=== PATIENT | male | born 1960 | race Caucasian/White ===

== ENCOUNTER 2016-05-18 16:24 | Inpatient (IN) | payer BC ==
[2016-05-18] MEDS ORDERED: Iohexol 350 (CONTRAST) 200 ML MDV IV ONE (16:30)
[2016-05-18] MEDS ORDERED: Heparin 2 UNITS/ML IVPREMIX* 2,000 ML IV ONE (16:30)
[2016-05-18] MEDS ORDERED: Heparin for STEMI(*) 5,000 UNITS/ML 1 ML VIAL IV ONE (16:33)
[2016-05-18] MEDS ORDERED: Lidocaine 1% INJ* 10 MG/ML 30 ML SDV ONE (16:35)
[2016-05-18] MEDS ORDERED: nitroGLYCERIN DRIP* 250 ML ONE (16:37)
[2016-05-18] MEDS ORDERED: VERAPAMIL 2.5 MG/ML 4 ML VIAL ONE (16:37)
[2016-05-18] MEDS ORDERED: Heparin(*) 1000 UNIT/ML 10 ML VIAL CATH LAB IV ONE (16:37)
[2016-05-18] MEDS ORDERED: Midazolam* 1 MG/ML 5 ML VIAL (5 MG) ONE (16:39)
[2016-05-18] MEDS ORDERED: fentaNYL* 50 MCG/ML 2 ML VIAL (100 MCG VIAL) ONE (16:39)
[2016-05-18 16:47] LABS: Hematocrit 48 % (42-52); Hemoglobin 15.3 g/dl (14.0-18.0); Mean Corpuscular HGB Conc 32 g/dl (31-36); Mean Corpuscular Hemoglobin 30 pg (27-31); Mean Corpuscular Volume 94 fL (80-94); Mean Platelet Volume 8 um3 (7.4-10.4); Red Blood Count 5.04 10^6/ul (4.0-5.4); Red Cell Distribution Width 13 % (10.5-15); White Blood Count 17.9 10^3/ul (3.5-10.8)
[2016-05-18] MEDS ORDERED: Ticagrelor* 90 MG TAB PO ONE (16:52)
[2016-05-18 17:04] LABS: Albumin 4.4 g/dL (3.2-5.2); BUN/Creatinine Ratio 16.3 (8-20); Calcium 10.1 mg/dL (8.6-10.3); EGFR African American 94.3 (>60); EGFR Non-African American 73.4 (>60); Globulin 2.8 g/dL (2-4); Potassium 4.5 mmol/L (3.5-5.0); Total Bilirubin 0.5 mg/dL (0.2-1.0); Total Protein 7.2 g/dL (6.4-8.9)
[2016-05-18 17:06] LABS: Troponin I 0.7 ng/mL (<0.04)
--- NOTE | 2016-05-18 17:12 | ED ---
Bhavin Paris Adam, scribed for Des Hernandez MD on 05/18/16 at 1637 . HPI Chest Pain - HPI Summary HPI Summary: Pt is a 56 year old male sent from [facility] urgent care with presumed STEMI. Pt reports feelings of heartburn that set on yesterday and resolved yesterday afternoon. Pt slept normally but states that the heartburn sensation returned today accompanied by nausea and diaphoresis. He has a PMHx of HTN and DM but denies any other cardiac Hx. He denies ever having a stress test. Hx of tobacco smoking. No Hx of surgeries. - History of Current Complaint Time Seen by Provider: 05/18/16 16:32 Hx Obtained From: Patient Onset/Duration: Started Days Ago, Atraumatic, Still Present Timing: Intermittent Initial Severity: Moderate Current Severity: Moderate Chest Pain Location: Upper Sternal Chest Pain Radiates: No Character: Other: - Heartburn Aggravating Factor(s): Nothing Alleviating Factor(s): Nothing Associated Signs and Symptoms: Positive: Diaphoresis, Nausea PMH/Surg Hx/FS Hx/Imm Hx Cardiovascular History: Reports: Hx Hypertension Infectious Disease History: Denies: Traveled Outside the [place] in Last 30 Days - Social History Occupation: Employed Full-time Lives: With Family - Hx Tobacco Use: Yes Review of Systems Positive: Skin Diaphoresis Positive: Chest Pain Positive: Nausea All Other Systems Reviewed And Are Negative: Yes Physical Exam - Summary Physical Exam Summary: VITAL SIGNS: Reviewed. GENERAL: Patient is a well developed and nourished male who is lying comfortable in the stretcher. Patient is not in any acute respiratory distress. HEAD AND FACE: No signs of trauma. No ecchymosis, hematomas or skull depressions. No sinus tenderness. EYES: PERRLA, EOMI x 2, No injected conjunctiva, no nystagmus. EARS: Hearing grossly intact. Ear canals and tympanic membranes are within normal limits. MOUTH: Oropharynx within normal limits. NECK: Supple, trachea is midline, no adenopathy, no JVD, no carotid bruit, no c- spine tenderness, neck with full ROM. CHEST: Symmetric, no tenderness at palpation LUNGS: Clear to auscultation bilaterally. No wheezing or crackles. CVS: Regular rate and rhythm, S1 and S2 present, no murmurs or gallops appreciated. ABDOMEN: Soft, non-tender. No signs of distention. No rebound no guarding, and no masses palpated. Bowel sounds are normal. EXTREMITIES: FROM in all major joints, no edema, no cyanosis or clubbing. NEURO: Alert and oriented x 3. No acute neurological deficits. Speech is normal and follows commands. SKIN: Dry and warm Triage Information Reviewed: Yes Vital Signs Reviewed: Yes Diagnostics - Laboratory Result Diagrams: 05/18/16 16:35 05/18/16 16:35 Lab Statement: Any lab studies that have been ordered have been reviewed, and results considered in the medical decision making process. - EKG 16:23 Cardiac Rate: NL - 80 BPM EKG Rhythm: Sinus Rhythm EKG Interpretation: ST elevations in V2-V5 with reciprocal changes in II,III, and aVF Chest Pain Course/Dx - Course Assessment/Plan: Pt is a 56 year old male sent from [facility] urgent care with presumed STEMI. Pt reports feelings of heartburn that set on yesterday and resolved yesterday afternoon. Pt slept normally but states that the heartburn sensation returned today accompanied by nausea and diaphoresis. He has a PMHx of HTN and DM but denies any other cardiac Hx. EKG shows and JUAN FRANCISCO V2-V5 with reciprocal changes in lead II, III and AVf. STEM protocol was called. Blood work is pending. He was given Heparin 4000 units. I discussed the case with Dr. Mendes. He came and examined the patient and he will be taking the patient to the phlebotomy lab assistant. Patient is hemodynamically stable and he is A+O x 3. - Chest Pain Differential Diagnosis/HQI/PQRI: Acute [place], ACS, Angina, CHF, Chest Wall, GI Disease, Lower Respiratory Infection - Diagnoses Provider Diagnoses: Acute myocardial infarction Discharge - Discharge Plan Condition: Stable Disposition: ADMITTED TO [facility] Referrals: Sekou Arredondo MD [Primary Care Provider] - The documentation as recorded by the Bhavin mcmillan Adam accurately reflects the service I personally performed and the decisions made by me, Des Hernandez MD.
[2016-05-18] MEDS ORDERED: Eptifibatide IV (Load dose)(*) 2 MG/ML 10 ml VIAL ONE ×2 (17:16)
[2016-05-18] MEDS ORDERED: Nitroglycerin TAB 0.4 MG* 0.4 MG TAB SL PRN (18:06)
[2016-05-18] MEDS ORDERED: Ondansetron INJ* 2 MG/ML VIAL IV PRN (18:08)
[2016-05-18] MEDS ORDERED: Zolpidem TAB* 5 MG PO PRN (18:08)
[2016-05-18] MEDS ORDERED: NS 0.9% 1000 ML* 1,000 ML IV SCH (18:15)
[2016-05-18 19:03] LABS: Hematocrit 41 % (42-52); Hemoglobin 13.1 g/dl (14.0-18.0); Mean Corpuscular HGB Conc 32 g/dl (31-36); Mean Corpuscular Hemoglobin 30 pg (27-31); Mean Corpuscular Volume 94 fL (80-94); Mean Platelet Volume 8 um3 (7.4-10.4); Red Blood Count 4.31 10^6/ul (4.0-5.4); Red Cell Distribution Width 14 % (10.5-15); White Blood Count 14.3 10^3/ul (3.5-10.8)
[2016-05-18 19:18] LABS: ALT 39 U/L (7-52); AST 180 U/L (13-39); Albumin 3.6 g/dL (3.2-5.2); Alkaline Phosphatase 61 U/L (34-104); Anion Gap 3 mmol/L (2-11); BUN/Creatinine Ratio 19.8 (8-20); Blood Urea Nitrogen 16 mg/dL (6-24); CO2 Carbon Dioxide 27 mmol/L (22-32); Calcium 8.5 mg/dL (8.6-10.3); Chloride 102 mmol/L (101-111); EGFR African American 125.9 (>60); EGFR Non-African American 97.9 (>60); Globulin 2.1 g/dL (2-4); Glucose 153 mg/dL (70-100); LDL Cholesterol Direct 69 mg/dL; Potassium 4.4 mmol/L (3.5-5.0); Sodium 132 mmol/L (133-145); Total Protein 5.7 g/dL (6.4-8.9)
[2016-05-18 19:24] LABS: Troponin I 44.31 ng/mL (<0.04)
[2016-05-18 19:34] LABS: Creatine Kinase 2782 U/L (10-223)
[2016-05-18] MEDS: Atorvastatin* 80 MG TAB PO SCH (21:24)
[2016-05-18] MEDS: Nicotine PATCH 14 MG/24 HR* PATCH TRANSDERM SCH (21:24)
[2016-05-18] MEDS: Famotidine TAB* 20 MG PO SCH (21:24)
[2016-05-18] MEDS: Metoprolol Tartrate TAB* 25 MG PO SCH (21:24)
--- NOTE | 2016-05-18 21:24 | HP ---
HISTORY AND PHYSICAL: DATE OF ADMISSION: 05/18/16 PRIMARY CARE PHYSICIAN: Dr. Arredondo. HISTORY OF PRESENT ILLNESS: A 56-year-old male presenting to the ER with anterior ST-elevation infarct. He has no previous cardiac history. He has a history of infrequent heartburn. Yesterday, all day long, he had what he thought was severe heartburn with precordial burning with radiation of discomfort up into his lower teeth. Nonetheless, he worked all day, the discomfort gradually resolved by evening. This morning, he then had a recurrence of the same discomfort with radiation to his teeth which was intermittent and waxing and waning, he went to urgent care thinking he had bad heartburn. EKG there at 1544 hours revealed an acute anterolateral ST- elevation infarct with ST elevation in aVL, V1 through V5 with minimal if any R waves in V1, V2, QS in V3, Q wave in aVL. He had reciprocal inferior ST depression. He was transferred to our ER where he complained of mild chest discomfort, was brought to the sanitation laborer for emergent catheterization. He has not had heart failure symptoms, palpitations, or syncope. In hindsight, he may have been more fatigued lately. He works doing painting and dry wall work. PAST MEDICAL HISTORY: Hypertension; diabetes, type 2. PREHOSPITAL MEDICATIONS: He is on oral meds for blood pressure and for diabetes , has not been on regular aspirin. He does not know his medications. ALLERGIES: None to medications. FAMILY HISTORY: Positive for coronary disease. SOCIAL HISTORY: He is a 4-gdsa-oag-day smoker. He is . REVIEW OF SYSTEMS: General: No weight loss. No fever. He is active. 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 GI: No history of peptic ulcer disease or bleeding. Circulatory: He does complain of leg cramping and knee pain with walking. Pulmonary: No history of COPD, bronchitis. Remainder of 14-point review all negative. PHYSICAL EXAMINATION GENERAL: When seen in the ER, he was not in distress. VITAL SIGNS: His blood pressure 150/80, heart rate 70s to 80s, sinus rhythm. HEENT: Without xanthelasma or scleral injection. EOMs normal. Cranial nerves grossly intact. NECK: JVP was normal at 7. Carotids normal without bruits. Neck is soft, supple. No thyromegaly. LUNGS: He had no dullness to percussion, no rales. CARDIAC: [place] not palpable, nor RV. Normal S1, S2. No audible gallop, murmur , or rub. ABDOMEN: Soft, nontender. No bruit. Aorta and liver not palpable. Femoral pulses 2+, no bruits. EXTREMITIES: Radial and pedal pulses palpable. He has no cyanosis, clubbing, or edema. PSYCH: Oriented and is appropriate. SKIN: Warm and perfused. DIAGNOSTIC STUDIES/LAB DATA: White count high at 17.9 with normal hemoglobin and platelet count. First sodium 132 with a random blood sugar of 194. First troponin 0.7 with MB of 18.7 and CPK of 174. BNP 201. His LDL is 82. EKG as above. IMPRESSION: 1. Anterolateral ST-elevation infarct. By history, he had ischemic symptoms all day yesterday suggesting a very late presentation. However, his first troponin is low. He has very poor R-wave progression in the right precordial leads; hopefully, this is due to lead placement rather than transmural septal infarct. His low cardiac enzymes do not support an extensive infarct prehospital. However, we will see where his enzymes peak. 2. Hypertension: We will continue to treat medically. 3. Diabetes: We will continue with medical management. 4. Tobacco use: He will be counseled to not resume smoking. CC: Dr. Arredondo; Dr. Mendes * [id number]/[facility] #: [id number] [facility]
[2016-05-18] MEDS: Captopril TAB* 12.5 MG PO SCH (21:25)
[2016-05-18] MEDS: Ticagrelor* 90 MG TAB PO SCH (21:25)
[2016-05-19 01:10] LABS: Troponin I > 80.00 ng/mL (<0.04)
[2016-05-19 01:21] LABS: Creatine Kinase 2722 U/L (10-223)
[2016-05-19 06:12] LABS: Anion Gap 6 mmol/L (2-11); BUN/Creatinine Ratio 20.3 (8-20); Blood Urea Nitrogen 15 mg/dL (6-24); CO2 Carbon Dioxide 24 mmol/L (22-32); Calcium 9.3 mg/dL (8.6-10.3); Chloride 100 mmol/L (101-111); Creatine Kinase 1641 U/L (10-223); EGFR African American 139.7 (>60); EGFR Non-African American 108.6 (>60); Glucose 181 mg/dL (70-100); Potassium 4.2 mmol/L (3.5-5.0); Sodium 130 mmol/L (133-145)
[2016-05-19 06:14] LABS: Troponin I > 80.00 ng/mL (<0.04)
[2016-05-19] MEDS: Metoprolol Tartrate TAB* 25 MG PO SCH ×3 (08:22→18:40)
[2016-05-19] MEDS: Famotidine TAB* 20 MG PO SCH (08:22)
[2016-05-19] MEDS: Ticagrelor* 90 MG TAB PO SCH ×2 (08:23→21:20)
[2016-05-19] MEDS: Aspirin Low Dose CHEW TAB* 81 MG PO SCH (08:23)
[2016-05-19] MEDS: Enoxaparin(*) 40 MG/0.4 ML SYR SUBCUT SCH (14:25)
[2016-05-19] MEDS: Captopril TAB* 12.5 MG PO SCH ×2 (14:25→21:20)
[2016-05-19] MEDS: Nicotine PATCH 14 MG/24 HR* PATCH TRANSDERM SCH (18:33)
[2016-05-19] MEDS: Latanoprost 0.005%* 2.5 ml BTL BOTH EYES SCH (21:18)
[2016-05-19] MEDS: Atorvastatin* 80 MG TAB PO SCH (21:19)
[2016-05-19] MEDS: Nicotine Patch Removal NOTE PATCH OFF SCH (21:30)
[2016-05-20] MEDS: Metoprolol Tartrate TAB* 25 MG PO SCH ×2 (01:10→06:48)
[2016-05-20] MEDS: Captopril TAB* 12.5 MG PO SCH ×4 (07:29→20:14)
[2016-05-20] MEDS: Aspirin Low Dose CHEW TAB* 81 MG PO SCH (08:36)
[2016-05-20] MEDS: Ticagrelor* 90 MG TAB PO SCH (08:37)
[2016-05-20] MEDS: Timolol 0.5% OPTH.SOL* BTL RIGHT EYE SCH (08:37)
[2016-05-20] MEDS: Famotidine TAB* 20 MG PO SCH (08:37)
--- NOTE | 2016-05-20 09:17 | ECHO ---
Patient: BECKI PALMER [facility] Rec#: [id number] : 1960 Date: 05/20/2016 Age: 56y Height: 168 cm / 66.1 in Weight: 67 kg / 147.7 lbs Sex: M BSA: 1.76 Room#: [facility] Admit Date#: 05/18/2016 Type: Inpatient Referring: Raul Mendes MD Reading: Srinivasan Barajas DO [place] Firer/Fireman: Mercy Argueta RDCS CC: Sekou Arredondo MD Transthoracic Echocardiogram Indication: STEMI BP: 119/77 HR: 77 Rhythm: NSR Findings History: Anterolateral STEMI 05/18/2016,HTN,DM,smoker. Technical Comments: The study quality is good. This is a limited study to evaluate for LVEF. Completed at 0810. Left Ventricle: The left ventricular chamber size is normal. There is no left ventricular hypertrophy. Prominent LV false tendon seen There is severely decreased left ventricular systolic function. The estimated ejection fraction is 20-25%. The basal anterior, basal anterolateral, mid anterolateral, and mid inferoseptal wall segments are hypokinetic (score 2). The basal anteroseptal, mid anteroseptal, mid anterior, apical septal, apical anterior, apical lateral, and apical inferior wall segments are akinetic (score 3). Overall wallmotion score index is 2.13 Right Ventricle: The right ventricular chamber size and systolic function are within normal limits. Pericardium: A pericardial effusion is visualized.A very small anterior pericardial effusion is present. Conclusions The left ventricular chamber size is normal. There is no left ventricular hypertrophy. There is severely decreased left ventricular systolic function with an estimated LVEF of 20-25%. The right ventricular chamber size and systolic function are within normal limits. A very small anterior pericardial effusion is present. Limited study performed to evaluate LVEF. No prior studies available for comparison. Measurements Name Value Normal Range IVSd (2D) 1 cm (0.6 - 1) LVPWd (2D) 1 cm (0.6 - 1) Wallmotion BAS Akinetic BA Hypokinetic BAL Hypokinetic LISSY Normal BI Normal BIS Normal MAS Akinetic MA Akinetic MAL Hypokinetic MIL Normal FL Normal MIS Hypokinetic Akinetic AA Akinetic AL Akinetic AI Akinetic APEX Akinetic
[2016-05-20] MEDS: CMC Prasugrel (NF) 10 MG PO SCH (11:33)
[2016-05-20] MEDS: Enoxaparin(*) 40 MG/0.4 ML SYR SUBCUT SCH (11:33)
[2016-05-20] MEDS: Carvedilol TAB* 6.25 MG PO SCH ×2 (11:34→20:16)
[2016-05-20] MEDS: Acetaminophen TAB* 325 MG PO PRN (20:13)
[2016-05-20] MEDS: Atorvastatin* 80 MG TAB PO SCH (20:13)
[2016-05-20] MEDS: Latanoprost 0.005%* 2.5 ml BTL BOTH EYES SCH (20:18)
[2016-05-20] MEDS: Nicotine Patch Removal NOTE PATCH OFF SCH (20:19)
[2016-05-20] MEDS: Nicotine PATCH 14 MG/24 HR* PATCH TRANSDERM SCH (20:19)
--- NOTE | 2016-05-20 21:07 | CATH ---
CC: Dr. Arredondo; Dr. Mendes STENT REPORT: DATE OF PROCEDURE: 05/18/16 PRIMARY: Dr. Arredondo. PROCEDURES: Right radial artery access, bilateral selective coronary cineangiography, left heart ca theterization, left ventriculography, stent placement LAD 2.75 x 16 Synergy drug-eluting stent, doub le bolus IC Integrilin. HISTORY: A 56-year-old diabetic with symptom onset more than 24 hours prior to presentation, presen ting to the ER with anterolateral ST elevation infarct. He still has ST elevation, still has waxing and waning chest discomfort. He was brought to the labor and delivery registered nurse. PROCEDURE ACCESS: Right radial artery sheath 6-F slender. MEDICATIONS: 1. Subcu lidocaine. 2. IV Versed. 3. IV fentanyl. 4. Heparin 4000 units, 3000 units. 5. Double bolus IC Integrilin. 6. Aspirin 224 mg. 7. IA nitroglycerin 300 mcg. 8. Verapamil 3 mg. In the ER, he received IV heparin. DIAGNOSTIC CATHETERS: 5-F TIG 4, 5-FL 3.5, 5-F pigtail. HEMODYNAMICS: Initial BP 155/90, LV post revascularization 125/17-26, no aortic valve gradient on p ullback. After diagnostic angiography, intervention of the LAD was performed. Guiding catheter: 6-F, Ikari left 3.75. Wire: 14 BMW. The proximal LAD occlusion was easily crossed, stented primarily with a 2.75 x 16 Synergy drug-eluting stent, deployed at 14 atmospheres, 30 seconds. Double bolus IC Integ rilin was then given followed by left heart catheterization and LV gram. He had chest discomfort re solution with recanalization of the LAD occlusion. ANGIOGRAPHY: RCA: The RCA is large, dominant, parekh s scattered luminal irregularity, has no significant stenosis. It supplies a moderate PDA, 2 smalle r and a moderate posterolateral. The RCA has no significant stenosis. There is an apical RCA to LA D collateral with slow filling. Left main: The left main is relatively long, normal. LAD: The LAD is occluded before the first septal, preceded by mild taper. Distal LAD does have col lateral filling from a large ramus. Circumflex: The circumflex is not dominant, has a large ramus branch, supplies a very small margina l and into the small posterolateral. The circumflex has no stenosis. The ramus has mild proximal l uminal irregularity. After the LAD occlusion was crossed with a wire, the occluded segment length i s approximately 5 mm. Distal LAD has JUAN DAVID-1 flow. After stent deployment with the stent ending pro ximal to the relatively small first diagonal, the LAD has no residual stenosis of significance. The first diagonal has ostial 50% stenosis with normal flow, was not treated. It is less than 2 mm in diameter. Right after the first diagonal, the LAD has a 20% stenosis. The LAD wraps around the ape x. LV gram: The mid anterolateral wall is dyskinetic. The anteroapical segment is dyskinetic. The in fra-apical segment is hypokinetic. The remainder of the inferior wall and the anterior base contrac t normally. Visually estimated LVEF 40% to 45% primarily because of the hypercontractile inferior w all. Computer-assisted calculated LVEF 52%, which is likely an over estimate. CONCLUSION: 1. Single-vessel disease LAD with very late presentation anterolateral ST elevation infarct with al ready Q waves, but residual chest discomfort suggesting myocardium still at jeopardy. Excellent ang iographic results with a drug-eluting stent placement. 2. LV systolic dysfunction, probably worse than what was measured by LV gram because of a hypercont ractile inferior wall. 3. Successful right radial artery access. [id number]/[facility] #: [id number]
[2016-05-21] MEDS: Timolol 0.5% OPTH.SOL* BTL RIGHT EYE SCH (09:29)
[2016-05-21] MEDS: Famotidine TAB* 20 MG PO SCH (09:30)
[2016-05-21] MEDS: Aspirin Low Dose CHEW TAB* 81 MG PO SCH (09:30)
[2016-05-21] MEDS: Carvedilol TAB* 6.25 MG PO SCH ×2 (09:30→20:01)
[2016-05-21] MEDS: CMC Prasugrel (NF) 10 MG PO SCH (09:30)
[2016-05-21] MEDS: Captopril TAB* 12.5 MG PO SCH ×2 (09:32→13:59)
[2016-05-21] MEDS: Enoxaparin(*) 40 MG/0.4 ML SYR SUBCUT SCH (13:59)
[2016-05-21 16:26] LABS: BUN/Creatinine Ratio 21.4 (8-20); Calcium 9.2 mg/dL (8.6-10.3); EGFR African American 86.6 (>60); EGFR Non-African American 67.3 (>60); Potassium 4.2 mmol/L (3.5-5.0)
[2016-05-21] MEDS: Acetaminophen TAB* 325 MG PO PRN ×2 (18:06)
[2016-05-21] MEDS: Nicotine PATCH 14 MG/24 HR* PATCH TRANSDERM SCH (18:39)
[2016-05-21] MEDS: Atorvastatin* 80 MG TAB PO SCH (20:02)
[2016-05-21] MEDS: Latanoprost 0.005%* 2.5 ml BTL BOTH EYES SCH (20:02)
[2016-05-21] MEDS: Nicotine Patch Removal NOTE PATCH OFF SCH (20:04)
[2016-05-21] MEDS ORDERED: Captopril TAB* 12.5 MG PO SCH (21:00)
[2016-05-22 05:47] LABS: BUN/Creatinine Ratio 24.2 (8-20); Calcium 9.1 mg/dL (8.6-10.3); EGFR African American 104.7 (>60); EGFR Non-African American 81.4 (>60)
[2016-05-22] MEDS ORDERED: metFORMIN* 500 MG TAB PO SCH (08:00)
[2016-05-22] MEDS ORDERED: Lisinopril TAB* 10 MG PO SCH (09:00)
[2016-05-22] MEDS: Famotidine TAB* 20 MG PO SCH (09:45)
[2016-05-22] MEDS: Timolol 0.5% OPTH.SOL* BTL RIGHT EYE SCH (09:45)
[2016-05-22] MEDS: Aspirin Low Dose CHEW TAB* 81 MG PO SCH (09:45)
[2016-05-22] MEDS: CMC Prasugrel (NF) 10 MG PO SCH (09:45)
[2016-05-22] MEDS: Carvedilol TAB* 6.25 MG PO SCH (09:46)
[2016-05-22 11:09] VITALS: BP 88/56
--- NOTE | 2016-05-22 23:21 | DS ---
DISCHARGE SUMMARY: DATE OF ADMISSION: 05/18/16 DATE OF DISCHARGE: 05/22/16 PRIMARY CARE PROVIDER: Sekou Arredondo MD DISCHARGE DIAGNOSES: 1. Anterolateral ST-elevation infarct. 2. Congestive heart failure, acute systolic. 3. Diabetes, type 2. 4. Hypertension. 5. Dyslipidemia. 6. Tobacco use. CONDITION ON DISCHARGE: Stable. PROCEDURES: Cardiac cath, stent placement LAD 2.75 x 16 Synergy drug-eluting stent, double bolus IC Integrilin, echocardiogram. DISCHARGE MEDICATIONS: 1. Aspirin 81 mg daily. 2. Lipitor 80 mg daily. 3. Carvedilol 12.5 b.i.d. 4. Xalatan eyedrops at h.s. as before. 5. Quinapril 10 mg daily. 6. Glucophage 1 g b.i.d. 7. Nitroglycerin 0.4 sublingual p.r.n. 8. Effient 10 mg daily. 9. Timolol ophthalmic as before. FOLLOWUP: With me next me for wrist check, with Dr. Arredondo as before. DIET: Continue heart healthy, diabetic. ACTIVITY: No strenuous exertion for next week. To walk 30 minutes daily. To not lift more than 10 pounds right hand for 2 days. Wound care shower only for 2 days. HISTORY: See H and P. DIAGNOSTIC STUDIES/LABORATORY DATA: Post PCI, CBC remained stable with a drop in white count to 14.3. Post PCI, chemistries today sodium 134, potassium 4, BUN 23, creatinine 0.95. Blood sugar 170. His BNP 312. LDL on admission was 82. EKG post revascularization tracing 05/21/16 shows Q-waves in aVL, and a QS V1 through V4 with persisting [address] elevation consistent with microvascular injury with no evolution of terminal T-wave inversion post infarct. HOSPITAL COURSE: He presented with an extensive anterolateral infarct already with Q-waves. However, he still had chest discomfort, underwent emergent catheterization with LAD revascularization. LVEF at cath was around 40 % with a hyperdynamic inferior wall. Subsequent Echo on 05/20/16, two days later, revealed LVEF of 20% to 25% with akinesis of the anteroapical segments. A LifeVest was therefore recommended and provided. He has been educated in its use, he is wearing it. He is aware of the plan of titrating his heart failure meds while he wears the LifeVest, with the plan of followup LV systolic function remeasurement and a decision regarding need for long-term AICD versus discontinuation of the vest. In the hospital, he had no further angina. He had compensated LV systolic dysfunction. He had no arrhythmias whatsoever. He had no complications at the wrist site. He has committed to stopping smoking, will contact Dr. Arredondo if he needs another prescription of Chantix, which was effective in the past. In the hospital, he had few episodes of asymptomatic systolic blood pressure in the 80s, he is discharged on only 10 of quinapril whereas he is to be on 40 mg daily. CC: Sekou Arredondo MD; Dr. Mendes* [id number]/[facility] #: [id number] MTDD
[2016-05-23] MEDS ORDERED: Lisinopril TAB* 10 MG PO SCH (09:00)
== END 2016-05-22 14:40 | disposition home or self-care (01) | DRG 174 ==
LOC: ED 16:24 → ICU 17:00 → MEDTELE 05-20 15:29
PROVIDERS: ADMIT Internal Medicine Cardiovascular Disease; ATTEND Internal Medicine Cardiovascular Disease
PROC: 3E073PZ Introduction of Platelet Inhibitor into Coronary Artery, Percutaneous Approach (ICD-10-PCS; 2016-05-18)
PROC: 4A023N7 Measurement of Cardiac Sampling and Pressure, Left Heart, Percutaneous Approach (ICD-10-PCS; 2016-05-18)
PROC: B2151ZZ Fluoroscopy of Left Heart using Low Osmolar Contrast (ICD-10-PCS; 2016-05-18)
PROC: B2111ZZ Fluoroscopy of Multiple Coronary Arteries using Low Osmolar Contrast (ICD-10-PCS; 2016-05-18)
PROC: 027034Z Dilation of Coronary Artery, One Artery with Drug-eluting Intraluminal Device, Percutaneous Approach (ICD-10-PCS; principal; 2016-05-18 16:30)
DX: I21.09 ST elevation (STEMI) myocardial infarction involving other coronary artery of anterior wall (principal); I50.21 Acute systolic (congestive) heart failure; E11.9 Type 2 diabetes mellitus without complications; F17.210 Nicotine dependence, cigarettes, uncomplicated; I25.10 Atherosclerotic heart disease of native coronary artery without angina pectoris; I11.0 Hypertensive heart disease with heart failure; Z79.82 Long term (current) use of aspirin; Z79.02 Long term (current) use of antithrombotics/antiplatelets
CPT/HCPCS: 36415; 80048; 80053; 82550; 82553; 83036; 83721; 83874; 83880; 84484; 85027; 85610; 85730; 86850; 86900; 86901; 87641; 93005; 93308; 99406; A9270-GY; C1769; C1876; C9606-LD; J1327; J1644; J1650; J2250; J3010

== ENCOUNTER 2016-06-04 06:19 | Inpatient (IN) | payer BC ==
[2016-06-04] MEDS ORDERED: Metoprolol Tartrate IV* 1 MG/ML 5 ML VIAL IV ONE ×2 (06:29→06:46)
[2016-06-04 06:38] LABS: Hematocrit 41 % (42-52); Hemoglobin 13.5 g/dl (14.0-18.0); Mean Corpuscular HGB Conc 33 g/dl (31-36); Mean Corpuscular Hemoglobin 30 pg (27-31); Mean Corpuscular Volume 93 fL (80-94); Mean Platelet Volume 8 um3 (7.4-10.4); Red Blood Count 4.45 10^6/ul (4.0-5.4); Red Cell Distribution Width 13 % (10.5-15); White Blood Count 18.1 10^3/ul (3.5-10.8)
[2016-06-04 06:40] LABS: Add Diff/Slide Review? Slide Review Added; Comments Flag Yes
[2016-06-04 06:57] LABS: Albumin 3.5 g/dL (3.2-5.2); BUN/Creatinine Ratio 29.9 (8-20); Calcium 9.3 mg/dL (8.6-10.3); EGFR African American 82.3 (>60); Globulin 3.3 g/dL (2-4); Magnesium 2.1 mg/dL (1.9-2.7); Potassium 4.9 mmol/L (3.5-5.0); Total Bilirubin 1.1 mg/dL (0.2-1.0); Total Protein 6.8 g/dL (6.4-8.9)
[2016-06-04] MEDS ORDERED: NS 0.9% 500 ML* 500 ML IV SCH (07:00)
[2016-06-04 07:02] LABS: Troponin I 0.05 ng/mL (<0.04)
[2016-06-04] MEDS ORDERED: Adenosine* 3 MG/ML VIAL IV PUSH ONE (07:12)
[2016-06-04] MEDS ORDERED: Amiodarone 150 MG IVPREMIX* 150 MG/100 ML BAG IV ONE ×2 (07:26→07:50)
[2016-06-04] MEDS ORDERED: Amiodarone 360 MG IVPREMIX* 360 MG/200 ML BAG IV ONE (07:50)
[2016-06-04] MEDS ORDERED: Midazolam* 1 MG/ML 10 ML VIAL (10 MG) ONE (07:54)
[2016-06-04] MEDS ORDERED: fentaNYL* 50 MCG/ML 2 ML VIAL (100 MCG VIAL) ONE (07:55)
--- NOTE | 2016-06-04 08:16 | ED ---
Karl Paris Rebecca, scribed for Cesario Bland MD on 06/04/16 at 0757 . Progress - Progress Note Progress Note: Signed out by Dr. Chapman at 0700. Mild infarct, recent injection. Wearing a LifeVest, which was read remotely as showing SVT. He was instructed to come to ED. Dr. Bland administered 150 mg Amiodarone. The lopper, Dr. Lu, evaluated the pt in the ED and will attempt cardioversion. Pt will be admitted to hospitalist services. Course/Dx - Diagnoses Provider Diagnoses: SVT (supraventricular tachycardia) - Provider Notifications Discussed Care Of Patient With: Dr. Lu, lopper, at 0745, who saw pt in the ED and will attempt cardioversion. Dr. Moon, hospitalist, at 0750 who accepts pt for admission. The documentation as recorded by the scribeKarl Rebecca accurately reflects the service I personally performed and the decisions made by , Cesario Bland MD.
[2016-06-04] MEDS ORDERED: Midazolam* 1 MG/ML 10 ML VIAL (10 MG) IV ONE (08:24)
[2016-06-04] MEDS ORDERED: fentaNYL* 50 MCG/ML 2 ML VIAL (100 MCG VIAL) IV SLOW PU PRN (08:27)
[2016-06-04] MEDS ORDERED: NS 0.9% 1000 ML* 1,000 ML IV SCH (08:30)
[2016-06-04] MEDS ORDERED: fentaNYL* 50 MCG/ML 2 ML VIAL (100 MCG VIAL) IV SLOW PU ONE (08:31)
--- NOTE | 2016-06-04 09:38 | RAD ---
Indication: Palpitations. Single frontal view of the chest performed at 0705 hours was reviewed. Comparison is made with previous exam dated March 28, 2013.. No mediastinal shift is noted. Heart is of normal size and configuration. Lung adkins appear clear. Components of the defibrillator vest is noted. IMPRESSION: NO ACTIVE CARDIOPULMONARY DISEASE IS NOTED.
[2016-06-04] MEDS ORDERED: Dextrose 50% Syringe 50 ML* 25 GM/50 ML SYRINGE IV PUSH PRN (12:53)
[2016-06-04] MEDS ORDERED: Amiodarone 360 MG IVPREMIX* 360 MG/200 ML BAG IV SCH (14:30)
[2016-06-04] MEDS: Amiodarone 360 MG IVPREMIX* 360 MG/200 ML BAG IV SCH (14:34)
[2016-06-04] MEDS: Heparin VIAL(*) 5000 UNITS/ML VIAL (FIVE THOUSAND) SUBCUT SCH ×2 (15:44→21:45)
--- NOTE | 2016-06-04 16:07 | CONS ---
CC: Dr. Arredondo; Dr. Mendes CONSULTATION REPORT: DATE OF CONSULT: 06/04/16 REFERRAL PHYSICIAN: Dr. Chapman. REASON FOR CONSULT: I was kindly asked to see this patient urgently for narrow complex tachycardia in the setting of large anterolateral WI with residual severe ischemic cardiomyopathy approximately 2 weeks ago. HISTORY OF PRESENT ILLNESS: The history is obtained from the patient, his , as well as from other family members, who were present at the bedside in the emergency room. The patient was having severe heartburn which began on 05/16/16 and he presented to [facility] on May 18 2016 where he was found to have large anterolateral WI, at which time he was diagnosed with anterolateral ST-elevation infarct, was seen on EKG. Because he was still having waxing and waning chest discomfort, he was taken to the [facility] 05/18/16, where he was found to have proximal LAD occlusion and he was treated with drug-eluting stent , 2.75 x 16 mm Synergy. Other coronary anatomy was stated as RCA large dominant with no significant stenosis, apical RCA to LAD collateral, circumflex nondominant with no stenosis, and ramus with mild proximal luminal irregularity. Also the first diagonal branch had an ostial 50% stenosis which was not treated, as it was less than 2 mm in diameter, and right after the first diagonal, the LAD had a 20% stenosis. The patient had a transthoracic echocardiogram on 05/20/16 with EF of 20% to 25%. He was discharged on in good condition with the LifeVest because of his severe ischemic cardiomyopathy and no arrhythmias. The patient apparently yesterday began noting that his [employer] machine external monitor was ringing and he was repeatedly deactivating it. Overnight, he became concerned that it was malfunctioning, as it was ringing so often, so he called the [employer] company, and they advised him that his heart rate was tachycardic to 150 beats a minute after downloading strips. The patient then called me at 0500 to report that as I am media/instructional designer for our group. When I called the patient, he had no complaints, but I advised he call 911. On presentation in the emergency room, he was found to have a narrow complex tachycardia to 155 BPM. On my subsequent evaluation of the patient urgently this morning in the emergency room at 0700, he states that he has no palpitations, but does feel short of breath and his blood pressure was low with systolics to 80s. He denies palpitations or angina at this time but did have some "mild heartburn" last night. URGENT ELECTRICAL CARDIOVERSION PROCEDURE NOTE: Because of the urgent nature of his condition with a rapid narrow complex tachyarrhythmia with blood pressures on the low side and shortness of breath, I felt that he would benefit from urgent cardioversion. The patient was in agreement with that after discussion of risks, benefits, and alternatives with the risks including but not limited to stroke, , extension of WI, cardiac arrest. The patient repeatedly requested " I don't want to feel the shock" which I informed him we would try to accomplish as well. This conversation was witnessed by his . I did not feel that he was safe for an adenosine trial as he was unstable with low blood pressures and shortness of breath in the setting of severe ischemic cardiomyopathy. The appropriate time-out procedure was performed and documented including documentation of the patient, procedure, physician, and documentation needs with the patient actively participating. He received 1 mg of Versed and 100 mcg of fentanyl under my direction utilizing titrated concentration with good effect and then he received one cardioversion attempt with synchronized biphasic energy of 100 joules applied in the AP fashion with handsfree patches placed by myself with the anterior patch placed in the right anterior position and the posterior patch placed in the left posterior position. Once the cardioversion was performed, he resumed normal sinus rhythm with a heart rate of 85 beats a minute, and not unsurprisingly regained hemodynamic stability with MAP consistently greater than 60 mmHg and systolic blood pressures in the 90's. He was also feeling well and while he was recovering from sedation, he stated he felt well and in fact spontaneously "fist bumped" myself and the emergency room nurse taking care of him and easily recognized his , no complaints noted at that time. No complications of this procedure and it was considered SUCCESSFUL URGENT ELECTRICAL CARDIOVERSION REGAINING NORMAL SINUS RHYTHM FROM UNSTABLE NARROW COMPLEX TACHYCARDIA. The patient has had cough, shortness of breath, and fever for several days with some phlegm production. PAST MEDICAL HISTORY: Includes diabetes, hypertension, tobacco abuse. He has quit smoking cigarettes since his recent heart attack. OUTPATIENT MEDICATIONS: 1. Aspirin 81 mg once a day. 2. Lipitor 80 mg once a day. 3. Coreg 12.5 mg once a day. 4. Quinapril 10 mg once a day. 5. Effient 10 mg once a day. 6. Glucophage 1 g p.o. b.i.d. 7. Timolol eye drops. ALLERGIES TO MEDICATIONS: Reported as none. FAMILY HISTORY: Positive for cardiac disease, diabetes, cancer. No family history of stroke. SOCIAL HISTORY: The patient had been a 7-[id number]-upg-day smoker, but quit smoking cigarettes since his heart attack on 05/18/16, which is when he was admitted to [facility]. He does not drink alcohol. He does drink 3 to 4 cups of coffee. He has been for 39 years. He did not graduate high school. He works in construction. REVIEW OF SYSTEMS: Unable to exhaustively review due to his acute condition, but pertinent negatives as described above. PHYSICAL EXAM: Blood pressure currently is 91/74 with a pulse of 85 after cardioversion. On my initial arrival, his blood pressure was systolic of 80 with a pulse of 151 prior to the cardioversion. Temperature 97.7 degrees Fahrenheit, O2 saturation 96%. On general exam, he is a pleasant man in no acute distress. HEENT shows the cranium is normocephalic and atraumatic. He has dry mucosal membranes. Neck veins are not distended. There are no carotid bruits. Visible skin warm and perfused. Affect appropriate. He appears oriented. No significant kyphoscoliosis on back exam. Lungs are clear to auscultation anteriorly. No wheezes. Cardiac Exam: S1 and S2. Regular rate. Soft holosystolic murmur heard without radiation. No rub or gallop. PMI is nondisplaced. Abdomen is soft, nondistended, appears benign. Extremities without significant edema. Pulses appear grossly intact. DIAGNOSTIC STUDIES/LAB DATA: A 12-lead EKG from 06/04/16 at 06:19 shows narrow complex tachycardia at 156 beats a minute likely atrial tachycardia with diffuse ST- T wave changes, likely rate related. When compared to prior EKG completed 05/21/16, previously the patient had demonstrated sinus rhythm at 95 beats a minute, borderline short AL interval and a lateral infarct evolving. White blood cell count is 18.1 today and had been 14.3 on 05/18/16 prior to his discharge, his hematocrit is 41, platelet count is 405. Sodium is 129, potassium 4.9, chloride 96, bicarbonate 25, BUN 35, creatinine 1.17. Troponin 0.05. Magnesium 2.1. Chest x-ray does not show definitive infiltrate. IMPRESSION: Mr. Martines is a 56-year-old gentleman with recent anterolateral myocardial infarction presumed to begin on 05/16/16, who sought late treatment for such, and was intervened upon on 05/18/16 with residual severe ischemic cardiomyopathy. He has been treated with a proximal left anterior descending artery drug-eluting stent on 05/18/16 with known residual small vessel diagonal 50% lesion and mild left anterior descending artery residual 20% lesion with no significant stenoses in the right coronary artery nor nondominant circumflex as well as only mild luminal irregularity of the ramus with ejection fraction of 20 % to 25%. He is now being admitted after urgent cardioversion for rapid unstable narrow complex tachycardia (consider atrial tachycardia) in the setting of recent symptoms of upper respiratory infection and caffeine ingestion. He has tolerated urgent cardioversion well and is now maintaining sinus rhythm with resumption secondarily of hemodynamic stability. We are loading him with amiodarone IV as well and he is being admitted appropriately to our ICU. RECOMMENDATIONS: We will complete amiodarone IV load and then transition him to amiodarone 400 mg p.o. b.i.d. beginning tomorrow after the amiodarone IV load and he may follow up with his usual maritime officer, Dr. Mendes, with whom I have discussed the patient's case. Regarding the patient's severe ischemic cardiomyopathy with recent prox LAD GUCCI PCI 05/18/16 for late presentation unstable large anterolateral STEMI; he will continue aspirin, Effient for one year, Coreg, lisinopril, and statin therapy. Other management including hyponatremia and URI symptoms, as well as diabetes as per the hospitalist medicine service who is the admitting service and I have discussed the case with Dr. Moon. We have advised the patient to avoid caffeine and if his atrial dysrhythmias were to persist despite amiodarone, then may require Electrophysiologic consultation for possible ablation in addition to implantable ICD if his severe cardiomyopathy persists beyond 3 months post initial anterolateral WI revascularization 05/18/16. Many thanks for this kind cardiac consultation opportunity. Please do not hesitate to contact me if you have any questions or concerns regarding the patient's cardiovascular consultative care. We look forward to following the patient with you. [id number]/[facility] #: [id number] LIAM
[2016-06-04] MEDS: Insulin LISPRO* 1 UNITS UNIT SUBCUT SCH (17:04)
--- NOTE | 2016-06-04 17:53 | HP ---
HISTORY AND PHYSICAL: DATE OF ADMISSION: 06/04/16 PRIMARY CARE PHYSICIAN: Dr. Sekou Arredondo. ATTENDING PHYSICIAN: Dr. Alfreda Moon *(dictated by Prachi Giang NP) CHIEF COMPLAINT: LifeVest alarming with fast heart rate. HISTORY OF PRESENT ILLNESS: Mr. Martines is a 56-year-old male with past medical history significant for hypertension, diabetes mellitus, anterior ST- elevated PR on 05/18/16, ischemic cardiomyopathy, systolic heart failure, who presented to the emergency room for complaints of his LifeVest alarming. The patient reports having heartburn starting on May 16 and he decided to present to the emergency room on May 18 at which time he was found to have a large anterolateral PR with ST elevation. The patient was taken to the cardiac fence laborer and was found to have a proximal LAD occlusion. The patient had a drug-eluting stent placed by Dr. Raul Mendes. The patient had an echocardiogram on May 20 showing an EF of 20% to 25%. The patient was discharged from [facility] on May 22 with a LifeVest due to his severe ischemic cardiomyopathy. The patient states that he was doing well until approximately 3 or 4 days ago when he started feeling fatigued and short of breath. The patient reports multiple alarms on his LifeVest yesterday and he was deactivating them. The LifeVest continued to alarm overnight and he called the LifeVest company who told him that his heart rate was 150. The patient proceeded to call the plywood stock grader on-call, Dr. Lu, who instructed the patient to present to the emergency room for evaluation of his tachycardia. While in the emergency room, the patient was found to be in a narrow complex tachycardia. He received amiodarone and was seen in consultation by Dr. Lu with Cardiology and underwent urgent cardioversion. While in the ER, the patient returned to normal sinus rhythm with MAP with improvement in his blood pressure by Dr. Lu. The patient reports over the last few days having subjective fevers and feeling cold. He reports a cough with clear mucus production, shortness of breath with exertion. The patient denies any palpitations. Hospitalists were asked to evaluate the patient for admission. PAST MEDICAL HISTORY: 1. Coronary artery disease with anterolateral ST-elevated PR on May 16. 2. Hypertension. 3. Diabetes mellitus. 4. Systolic heart failure. 5. Dyslipidemia. 6. Ischemic cardiomyopathy, EF 20% to 25%. 7. Former tobacco abuse. PAST SURGICAL HISTORY: 1. Status post cataract extraction. 2. Status post cardiac stent placement in the LAD. HOME MEDICATIONS: Include: 1. Aspirin 81 mg oral daily. 2. Lipitor 80 mg oral daily. 3. Carvedilol 12.5 mg oral twice daily. 4. Xalatan 0.005% one drop to both eyes daily at bedtime. 5. Quinapril 15 mg oral daily. 6. Glucophage 1000 mg oral twice daily. 7. Nitroglycerin 0.5 mg sublingual as needed for shortness of breath. 8. Effient 10 mg oral daily. 9. Timolol 0.5% one drop to both eyes daily. 10. Viagra 100 mg oral daily. ALLERGIES: No known drug allergies. FAMILY HISTORY: The patient reports family history in his paternal uncles of heart disease. The patient's brother and uncles on his maternal and paternal side with history of diabetes mellitus. The patient's sister had a history of breast cancer, mother with a history of esophageal cancer, and a brother with a history of intestinal cancer. SOCIAL HISTORY: The patient is a former smoker. He quit smoking 2 weeks ago, when he had his PR. Prior to that, he has a 47-year history of 3-ywos-q-day smoking. The patient occasionally drinks alcohol. Denies recreational drug use. The patient works in construction and is . His surrogate decision maker will be his , Salomon Martines, or his daughter, Winter, in the event he is unable to make decisions for himself. REVIEW OF SYSTEMS: I performed 14-point review of systems. All the pertinent positives and negatives are mentioned in the history of present illness. The remaining review of systems is negative. PHYSICAL EXAMINATION GENERAL APPEARANCE: The patient is alert, pleasant, appears to be in no acute distress. VITAL SIGNS: Temperature 98.9, heart rate 88, respiratory rate 18, O2 sat 98% on 2 L nasal cannula, blood pressure 120/105. HEENT: Normocephalic, atraumatic. Pupils are equal and reactive to light. Extraocular movements are intact. NECK: Supple. There is no lymphadenopathy noted. RESPIRATORY: There is no accessory muscle use and the lungs are clear to auscultation bilaterally. CARDIOVASCULAR: Regular rate and rhythm. S1, S2 present. There are no murmurs , rubs, or gallops. ABDOMEN: Soft, nontender, nondistended. There are bowel sounds present x4. EXTREMITIES: There is no lower extremity edema. DP and PT pulses are 2+ and symmetric. MUSCULOSKELETAL: There is no clubbing or cyanosis noted. The patient exhibits good strength in all extremities. NEUROLOGICAL: The patient is alert and oriented x4. Cranial nerves II through XII are grossly intact. PSYCHOLOGICAL: The patient is calm and cooperative. SKIN: There are no rashes or abnormalities seen. DIAGNOSTIC STUDIES/LAB DATA: Sodium 129, potassium 4.9, chloride 96, CO2 25, BUN 35, creatinine 1.17, glucose 186, magnesium 2.1. White blood cell count 18.1, hemoglobin 13.5, hematocrit 41, and platelet count 405. Troponin 0.05. EKG shows a narrow complex sinus tachycardia with a rate of 156. There are diffuse ST-T changes. When compared to previous EKG from 05/22/16, the patient was in sinus rhythm with a rate of 95 and anterolateral infarct. Chest x-ray from today. Radiologist's impression: No active cardiopulmonary disease. IMPRESSION AND PLAN: Mr. Martines is a 56-year-old male with past medical history significant for diabetes mellitus, hypertension, ischemic cardiomyopathy , systolic heart failure, and recent anterior ST-elevated myocardial infarction , status post stent placement in his left anterior descending artery, who presents today to the emergency room with complaints of his LifeVest alarming and was found to be in a narrow complex sinus tachycardia. The patient will be admitted as an inpatient for supraventricular tachycardia. 1. Supraventricular tachycardia: The patient is status post cardioversion while in the emergency room by Dr. Lu. The patient is currently in sinus rhythm. He will be continued on IV amiodarone for 24 hours and then converted to oral amiodarone. The patient should follow up with Dr. Mendes at discharge and avoid caffeine. The patient did have a slightly elevated troponin of 0.05 that we will recheck, I suspect this is related to demand ischemia and the patient's recent myocardial infarction. 2. Ischemic cardiomyopathy, systolic heart failure: The patient will be maintained on strict I's and O's and daily weights and continued on his EFREN inhibitor. 3. Hyponatremia: The patient will receive IV fluids and we will recheck his labs in the morning. 4. Coronary artery disease, recent myocardial infarction: The patient will be continued on aspirin, EFREN inhibitor, Coreg, Effient, and statin. 5. Hypertension: The patient's blood pressures have improved with his rate back in the sinus rhythm. He will be continued on his quinapril and Coreg. 6. Diabetes mellitus: We will hold the patient's home metformin. He will have glucose checks. He will be placed on a lispro sliding scale insulin coverage and a consistent carbohydrate diet. 7. Leukocytosis: The patient's white count is similar to when he was discharged, but up slightly, he was 14.3 on May 18 and is 18.1 today. We will check urinalysis and blood cultures and recheck the patient's complete blood count in the morning. 8. Tobacco abuse: The patient states that he quit smoking 2 weeks ago. He was congratulated and encouraged to abstain from smoking. 9. Fluids, electrolytes, and nutrition: The patient will be on a heart healthy , consistent carbohydrate diet. 10. Code status: Full code. 11. DVT prophylaxis: The patient is at moderate risk and will have subcu heparin. 12. Disposition: Inpatient. TIME SPENT: The time for this admission was 60 minutes, 35 minutes was spent face- to-face with the patient and family discussing medications, past medical history, and the events leading up to his arrival today and performing a physical examination. The case has been reviewed with the attending, Dr. Moon , who agrees with the plan of care. Reviewed by JEOVANNY HOLLEY 06/08/16 1943 CC: Dr. Sekou Arredondo; Dr. Raul Mendes * [id number]/[facility] #: [id number] [facility]
[2016-06-04] MEDS: Atorvastatin* 80 MG TAB PO SCH (21:44)
[2016-06-04] MEDS: Latanoprost 0.005%* 2.5 ml BTL BOTH EYES SCH (21:44)
[2016-06-04] MEDS: Carvedilol TAB* 6.25 MG PO SCH (21:44)
[2016-06-04] MEDS ORDERED: Acetaminophen TAB* 325 MG PO ONE (23:50)
[2016-06-04] MEDS ORDERED: Acetaminophen TAB* 325 MG ONE (23:59)
[2016-06-05] MEDS: Amiodarone 360 MG IVPREMIX* 360 MG/200 ML BAG IV SCH (00:33)
[2016-06-05 05:08] LABS: Hematocrit 36 % (42-52); Hemoglobin 11.7 g/dl (14.0-18.0); Mean Corpuscular HGB Conc 33 g/dl (31-36); Mean Corpuscular Hemoglobin 30 pg (27-31); Mean Corpuscular Volume 93 fL (80-94); Mean Platelet Volume 8 um3 (7.4-10.4); Red Blood Count 3.85 10^6/ul (4.0-5.4); Red Cell Distribution Width 13 % (10.5-15); White Blood Count 11.6 10^3/ul (3.5-10.8)
[2016-06-05 05:16] LABS: Add Diff/Slide Review? Slide Review Added; Comments Flag Yes
[2016-06-05 05:19] LABS: BUN/Creatinine Ratio 22.8 (8-20); Calcium 8.3 mg/dL (8.6-10.3); EGFR African American 108.7 (>60); EGFR Non-African American 84.5 (>60); Potassium 3.9 mmol/L (3.5-5.0)
[2016-06-05 05:25] LABS: Troponin I 0.05 ng/mL (<0.04)
[2016-06-05] MEDS: Heparin VIAL(*) 5000 UNITS/ML VIAL (FIVE THOUSAND) SUBCUT SCH (05:44)
[2016-06-05] MEDS: Insulin LISPRO* 1 UNITS UNIT SUBCUT SCH ×3 (07:53→16:43)
[2016-06-05] MEDS: Carvedilol TAB* 6.25 MG PO SCH ×2 (08:33→20:50)
[2016-06-05] MEDS: Timolol 0.5% OPTH.SOL* BTL BOTH EYES SCH (08:34)
[2016-06-05] MEDS: CMCS - Prasugrel (NF) 10 MG PO SCH (08:34)
[2016-06-05] MEDS: Aspirin Low Dose CHEW TAB* 81 MG PO SCH (08:34)
[2016-06-05] MEDS ORDERED: Lisinopril TAB* 5 MG PO SCH (09:00)
[2016-06-05] MEDS ORDERED: Amiodarone TAB* 400 MG PO SCH (09:00)
[2016-06-05] MEDS ORDERED: Digoxin IV* 0.5 MG/2 ML AMP (0.25 MG/ML) IV SLOW PU ONE ×2 (10:09→22:00)
[2016-06-05 10:50] LABS: Hematocrit 38 % (42-52); Hemoglobin 12.3 g/dl (14.0-18.0); Mean Corpuscular HGB Conc 33 g/dl (31-36); Mean Corpuscular Hemoglobin 30 pg (27-31); Mean Corpuscular Volume 93 fL (80-94); Mean Platelet Volume 8 um3 (7.4-10.4); Red Blood Count 4.05 10^6/ul (4.0-5.4); Red Cell Distribution Width 13 % (10.5-15); White Blood Count 9.9 10^3/ul (3.5-10.8)
[2016-06-05] MEDS: Heparin VIAL(*) 5000 UNITS/ML VIAL (FIVE THOUSAND) IV SCH (10:58)
[2016-06-05] MEDS: Heparin DRIP 25,000 UNITS(*) 25,000 UNITS/500 ML BAG IVPB SCH (11:00)
--- NOTE | 2016-06-05 15:04 | PN ---
Subjective Date of Service: 06/05/16 Interval History: this AM pt was noted to be in A. flutter, HR120's. SOB and cough are improving. still very weak. Denies CP Objective Active Medications: Amiodarone HCl (Cordarone Tab*) 400 mg PO BID [facility] Aspirin (Aspirin Low Dose Tab*) 81 mg PO DAILY [facility] Last Admin: 06/05/16 08:34 Dose: 81 mg Atorvastatin Calcium (Lipitor*) 80 mg PO 2100 [facility] Last Admin: 06/04/16 21:44 Dose: 80 mg Carvedilol (Coreg Tab*) 12.5 mg PO BID [facility] Last Admin: 06/05/16 08:33 Dose: 12.5 mg Dextrose (D50w Syringe 50 Ml*) 12.5 gm IV PUSH .FOR FS < 60 - SS PRN PRN Reason: FS < 60 Digoxin (Digoxin Iv*) 0.25 mg IV SLOW PU ONCE ONE Stop: 06/05/16 22:01 Digoxin (Lanoxin Tab*) 0.125 mg PO 1700 [facility] Heparin Sodium (Porcine) (Heparin Vial(*)) 0 units IV .PER PROTOCOL [facility] PRN Reason: Protocol Last Admin: 06/05/16 10:58 Dose: 5,250 units Heparin Sodium/Dextrose (Heparin Drip 25,000 Units(*)) 25,000 units in 500 mls @ 0 mls/hr IVPB .PER RATE [facility]; Per Protocol PRN Reason: Protocol Last Admin: 06/05/16 11:00 Dose: 20 mls/hr Insulin Human Lispro (Humalog*) 0 - 5 units SUBCUT AC [facility] PRN Reason: Protocol Last Admin: 06/05/16 12:05 Dose: 2 unit Latanoprost (Xalatan 0.005%*) 1 drop BOTH EYES BEDTIME [facility] Last Admin: 06/04/16 21:44 Dose: 1 drop Lisinopril (Prinivil Tab*) 2.5 mg PO DAILY [facility] Prasugrel (Effient (Nf)) 10 mg PO DAILY [facility] Last Admin: 06/05/16 08:34 Dose: 10 mg Timolol Maleate (Timoptic 0.5% Opth*) 1 drop BOTH EYES DAILY [facility] Last Admin: 06/05/16 08:34 Dose: 1 drop Vital Signs 06/04/16 06/04/16 06/04/16 15:30 15:49 16:00 Temperature 98.3 F Pulse Rate 80 80 Respiratory 21 22 Rate Blood Pressure 110/64 (mmHg) O2 Sat by Pulse 98 98 Oximetry 06/04/16 06/04/16 06/04/16 16:30 17:00 17:30 Temperature Pulse Rate 80 81 81 Respiratory 18 21 19 Rate Blood Pressure 115/81 (mmHg) O2 Sat by Pulse 97 98 98 Oximetry 06/04/16 06/04/16 06/04/16 18:00 18:30 19:00 Temperature Pulse Rate 84 88 87 Respiratory 17 23 25 Rate Blood Pressure 129/74 133/76 (mmHg) O2 Sat by Pulse 98 97 97 Oximetry 06/04/16 06/04/16 06/04/16 19:18 19:30 20:00 Temperature 100.3 F Pulse Rate 87 87 Respiratory 26 26 Rate Blood Pressure 139/72 (mmHg) O2 Sat by Pulse 95 96 Oximetry 06/04/16 06/04/16 06/04/16 20:30 21:00 21:30 Temperature Pulse Rate 88 86 87 Respiratory 29 25 25 Rate Blood Pressure 131/69 (mmHg) O2 Sat by Pulse 95 95 94 Oximetry 06/04/16 06/04/16 06/04/16 22:00 22:30 23:00 Temperature Pulse Rate 88 79 76 Respiratory 27 26 25 Rate Blood Pressure 130/80 100/68 (mmHg) O2 Sat by Pulse 95 94 94 Oximetry 06/04/16 06/04/16 06/05/16 23:16 23:30 00:00 Temperature 101.3 F Pulse Rate 76 77 Respiratory 23 24 Rate Blood Pressure 112/64 (mmHg) O2 Sat by Pulse 94 94 Oximetry 06/05/16 06/05/16 06/05/16 00:30 01:00 01:30 Temperature 97.2 F Pulse Rate 74 74 69 Respiratory 23 21 18 Rate Blood Pressure 100/63 (mmHg) O2 Sat by Pulse 93 95 94 Oximetry 06/05/16 06/05/16 06/05/16 02:00 02:30 03:00 Temperature Pulse Rate 66 66 65 Respiratory 17 16 19 Rate Blood Pressure 96/56 100/56 (mmHg) O2 Sat by Pulse 94 94 94 Oximetry 06/05/16 06/05/16 06/05/16 03:24 03:30 04:00 Temperature 97.6 F Pulse Rate 71 62 Respiratory 18 18 Rate Blood Pressure 95/57 (mmHg) O2 Sat by Pulse 97 95 Oximetry 06/05/16 06/05/16 06/05/16 04:30 05:00 05:30 Temperature Pulse Rate 56 69 136 Respiratory 15 19 20 Rate Blood Pressure 95/62 (mmHg) O2 Sat by Pulse 92 96 94 Oximetry 06/05/16 06/05/16 06/05/16 06:00 06:30 07:00 Temperature Pulse Rate 133 137 135 Respiratory 19 17 16 Rate Blood Pressure 113/68 97/63 (mmHg) O2 Sat by Pulse 95 95 94 Oximetry 06/05/16 06/05/16 06/05/16 07:30 07:44 08:00 Temperature 98.0 F Pulse Rate 135 138 Respiratory 19 23 Rate Blood Pressure 101/74 (mmHg) O2 Sat by Pulse 96 97 Oximetry 06/05/16 06/05/16 06/05/16 08:30 09:00 09:30 Temperature Pulse Rate 91 137 136 Respiratory 21 19 20 Rate Blood Pressure 95/71 (mmHg) O2 Sat by Pulse 96 97 97 Oximetry 06/05/16 06/05/16 06/05/16 10:00 10:30 10:46 Temperature Pulse Rate 69 62 120 Respiratory 20 23 Rate Blood Pressure 97/77 (mmHg) O2 Sat by Pulse 96 96 Oximetry 06/05/16 06/05/16 06/05/16 11:00 11:30 11:50 Temperature 98.3 F Pulse Rate 67 57 Respiratory 20 15 Rate Blood Pressure 110/88 (mmHg) O2 Sat by Pulse 98 99 Oximetry 06/05/16 06/05/16 06/05/16 12:00 12:30 12:59 Temperature Pulse Rate 95 46 47 Respiratory 21 21 20 Rate Blood Pressure 98/58 (mmHg) O2 Sat by Pulse 97 97 96 Oximetry 06/05/16 06/05/16 06/05/16 13:00 13:30 14:00 Temperature Pulse Rate 97 42 Respiratory 16 22 21 Rate Blood Pressure 105/60 (mmHg) O2 Sat by Pulse 98 98 Oximetry Oxygen Devices in Use Now: None Appearance: 56 yo M in NAd, aAOx3 Eyes: No Scleral Icterus, PERRLA Ears/Nose/Mouth/Throat: NL Teeth, Lips, Gums, Mucous Membranes Moist Neck: NL Appearance and Movements; NL JVP, Trachea Midline Respiratory: Symmetrical Chest Expansion and Respiratory Effort, Clear to Auscultation Cardiovascular: NL Sounds; No Murmurs; No JVD, RRR Abdominal: NL Sounds; No Tenderness; No Distention Lymphatic: No Cervical Adenopathy Extremities: No Edema, No Clubbing, Cyanosis Skin: No Rash or Ulcers, No Nodules or Sclerosis Neurological: Alert and Oriented x 3, NL Muscle Strength and Tone Result Diagrams: 06/05/16 10:30 06/05/16 10:30 Microbiology and Other Data: Microbiology 06/05/16 10:30 Influenza Types A,B Antigen (SERA) - Final Nasopharyngeal Specimen received for Influenza A/B Molecular testing Assess/Plan/Problems-Billing Assessment: 56 yo M with h/o STEMI on 05/16/16 (s/p stent placement by Dr. Mendes) , ischemic cardiomyopathy (EF20%)- using LifeVest, DM2, HTN, dyslipidemis, systolic CHF, HTN, former tobacco use presents with Life Vest alarming and SOB. Was febrile on the day of admission. S/p electrical cardioversion from narrow complex tachycardia by Dr. Lu on 06/04/16 - Patient Problems (1) Atrial flutter Comment: pt received a loading dose of Amiodarone and was on gtt till this AM. now on PO amiodarone BID. Initially after cardioversion in NSR and sinus viral. This AM noted to be in A. flutter. D/w DR. Lu, will start loading dose with digoxin and check levels on Monday due to low SBP Cardizem will not be used. Will start heparin gtt and Coumadin (2) HTN (hypertension) Comment: curretly low SBP, will lower lisinopril dose from 15 to 2.5 mg cont coreg (3) CAD (coronary artery disease) Comment: s/p LAD stent on 05/18/16 cont Effient /ASA troponin 0.05 after cardioversion, no clinically significant elevation (4) Dyslipidemia Comment: cont lipitor (5) DM2 (diabetes mellitus, type 2) Comment: holding metformin cont ISS (6) URI (upper respiratory infection) Comment: suspect viral syndrome.Leukocytosis resolved spontaneusly Fever>101 last night Cont to monitor Flu test neg (7) Systolic CHF Comment: EF 20% stable , currently appears euvolemic Cont daily weights (8) DVT prophylaxis Comment: heparin sc
[2016-06-05] MEDS: Warfarin TAB(*) 5 MG PO SCH (16:42)
[2016-06-05] MEDS: Atorvastatin* 80 MG TAB PO SCH (20:50)
[2016-06-05] MEDS: Amiodarone TAB* 400 MG PO SCH (20:51)
[2016-06-05] MEDS: Latanoprost 0.005%* 2.5 ml BTL BOTH EYES SCH (20:58)
[2016-06-06] MEDS: Heparin VIAL(*) 5000 UNITS/ML VIAL (FIVE THOUSAND) IV SCH ×2 (04:56→23:02)
[2016-06-06] MEDS: Insulin LISPRO* 1 UNITS UNIT SUBCUT SCH ×3 (07:52→17:18)
[2016-06-06] MEDS: Amiodarone TAB* 400 MG PO SCH ×2 (07:53→22:43)
[2016-06-06] MEDS: Carvedilol TAB* 6.25 MG PO SCH ×2 (07:53→22:14)
[2016-06-06] MEDS: CMCS - Prasugrel (NF) 10 MG PO SCH (07:53)
[2016-06-06] MEDS: Aspirin Low Dose CHEW TAB* 81 MG PO SCH (07:53)
[2016-06-06] MEDS: Lisinopril TAB* 5 MG PO SCH (07:54)
[2016-06-06] MEDS: Timolol 0.5% OPTH.SOL* BTL BOTH EYES SCH (07:55)
--- NOTE | 2016-06-06 09:41 | PN ---
Subjective Date of Service: 06/06/16 Interval History: Patient seen this morning. Reports feeling well overall, anxious to leave. No chest pain, palpitations, SOB, fever/chills. Understands plans for repeat cardioversion today. Family History: Unchanged from Admission Social History: Unchanged from Admission Past Medical History: Unchanged from Admission Objective Active Medications: Amiodarone HCl (Cordarone Tab*) 400 mg PO BID [facility] Aspirin (Aspirin Low Dose Tab*) 81 mg PO DAILY [facility] Atorvastatin Calcium (Lipitor*) 80 mg PO 2100 [facility] Carvedilol (Coreg Tab*) 12.5 mg PO BID [facility] Dextrose (D50w Syringe 50 Ml*) 12.5 gm IV PUSH .FOR FS < 60 - SS PRN Digoxin (Lanoxin Tab*) 0.125 mg PO 1700 [facility] Heparin Sodium (Porcine) (Heparin Vial(*)) 0 units IV .PER PROTOCOL [facility] Heparin Sodium/Dextrose (Heparin Drip 25,000 Units(*)) 25,000 units in 500 mls @ 0 mls/hr IVPB .PER RATE [facility]; Per Protocol Insulin Human Lispro (Humalog*) 0 - 5 units SUBCUT AC [facility] Latanoprost (Xalatan 0.005%*) 1 drop BOTH EYES BEDTIME [facility] Lisinopril (Prinivil Tab*) 2.5 mg PO DAILY [facility] Prasugrel (Effient (Nf)) 10 mg PO DAILY [facility] Timolol Maleate (Timoptic 0.5% Opth*) 1 drop BOTH EYES DAILY [facility] Warfarin Sodium (Coumadin Tab(*)) 5 mg PO DAILY@1700 [facility] Vital Signs 06/05/16 06/05/16 06/05/16 10:00 10:30 10:46 Temperature Pulse Rate 69 62 120 Respiratory 20 23 Rate Blood Pressure 97/77 (mmHg) O2 Sat by Pulse 96 96 Oximetry 06/05/16 06/05/16 06/05/16 18:00 18:26 18:30 Temperature Pulse Rate 79 105 119 Respiratory 23 22 22 Rate Blood Pressure 127/59 (mmHg) O2 Sat by Pulse 95 95 95 Oximetry 06/06/16 06/06/16 06/06/16 03:30 03:39 04:00 Temperature 98.0 F 99.2 F Pulse Rate 84 88 Respiratory 18 21 Rate Blood Pressure 110/66 (mmHg) O2 Sat by Pulse 94 94 Oximetry 06/06/16 06/06/16 06/06/16 08:00 08:30 09:00 Temperature Pulse Rate 96 84 80 Respiratory 20 19 19 Rate Blood Pressure 117/69 107/69 (mmHg) O2 Sat by Pulse 95 95 95 Oximetry Oxygen Devices in Use Now: None Appearance: Middle-aged, M, laying in bed in NAD Eyes: No Scleral Icterus Ears/Nose/Mouth/Throat: Mucous Membranes Moist Neck: NL Appearance and Movements; NL JVP Respiratory: Symmetrical Chest Expansion and Respiratory Effort, - - diminshed in bases with mild rales B/L Cardiovascular: NL Sounds; No Murmurs; No JVD, RRR Abdominal: NL Sounds; No Tenderness; No Distention Lymphatic: No Cervical Adenopathy Extremities: No Edema Skin: No Rash or Ulcers, - - warm, mildly diaphoretic Neurological: Alert and Oriented x 3 Result Diagrams: 06/05/16 10:30 06/05/16 10:30 Microbiology and Other Data: Microbiology 06/05/16 10:30 Influenza Types A,B Antigen (SERA) - Final Nasopharyngeal Specimen received for Influenza A/B Molecular testing Assess/Plan/Problems-Billing Assessment: 56 yo M with h/o STEMI on 05/16/16 (s/p stent placement by Dr. Mendes) , ischemic cardiomyopathy (EF20%)- using LifeVest, DM2, HTN, dyslipidemis, systolic CHF, HTN, former tobacco use presents with Life Vest alarming and SOB. Was febrile on the day of admission. S/p electrical cardioversion from narrow complex tachycardia by Dr. Lu on 06/04/16, then developed Aflutter - Patient Problems (1) Atrial flutter Current Visit: Yes Comment: Initially after cardioversion in NSR and sinus viral then developed A. flutter. pt received a loading dose of Amiodarone and is now on PO Amiodarone 400 mg BID along with Digoxin 125 mcg daily (level 06/07 AM). Plan for repeat Cardioversion today (06/06) by Dr. Forrester Continue heparin gtt and Coumadin for now (2) CAD (coronary artery disease) Current Visit: Yes Comment: s/p LAD stent on 05/18/16 cont Effient /ASA troponin 0.05 after cardioversion, no clinically significant elevation (3) DM2 (diabetes mellitus, type 2) Current Visit: Yes Comment: holding metformin cont ISS (4) HTN (hypertension) Current Visit: Yes Comment: Continue decreased Lisinopril and cont coreg (5) Systolic CHF Current Visit: Yes Comment: EF 20% repeat echo pending stable , currently appears euvolemic Cont daily weights (6) URI (upper respiratory infection) Current Visit: Yes Comment: suspect viral syndrome.Leukocytosis resolved spontaneusly Cont to monitor Flu test neg (7) Dyslipidemia Current Visit: Yes Comment: cont lipitor (8) DVT prophylaxis Current Visit: Yes Comment: heparin/coumadin Status and Disposition: Inpatient, repeat cardioversion today (06/06) potential d/c in 06/07
[2016-06-06] MEDS ORDERED: Naloxone* 0.4 MG/ML 1 ML VIAL ONE (10:26)
[2016-06-06] MEDS ORDERED: fentaNYL* 50 MCG/ML 2 ML VIAL (100 MCG VIAL) ONE (10:26)
[2016-06-06] MEDS ORDERED: Midazolam* 1 MG/ML 5 ML VIAL (5 MG) ONE (10:26)
[2016-06-06] MEDS ORDERED: Flumazenil* 0.1 MG/ML 5 ML MDV ONE (10:27)
[2016-06-06 12:43] LABS: Hematocrit 39 % (42-52); Hemoglobin 12.6 g/dl (14.0-18.0); Mean Corpuscular HGB Conc 33 g/dl (31-36); Mean Corpuscular Hemoglobin 30 pg (27-31); Mean Corpuscular Volume 93 fL (80-94); Mean Platelet Volume 8 um3 (7.4-10.4); Red Blood Count 4.17 10^6/ul (4.0-5.4); Red Cell Distribution Width 13 % (10.5-15); White Blood Count 7.7 10^3/ul (3.5-10.8)
[2016-06-06] MEDS: Heparin DRIP 25,000 UNITS(*) 25,000 UNITS/500 ML BAG IVPB SCH ×2 (15:02→23:06)
[2016-06-06] MEDS ORDERED: Digoxin TAB* 0.125 MG PO SCH (17:00)
[2016-06-06] MEDS: Warfarin TAB(*) 5 MG PO SCH (17:18)
--- NOTE | 2016-06-06 21:41 | CARD ---
PROCEDURE NOTE: DATE OF PROCEDURE: 06/06/16 - ROOM #445 PROCEDURE PERFORMED: Cardioversion. INDICATION: Atrial flutter. HISTORY: The patient is a 56-year-old gentleman who was brought to the emergency room yesterday because of tachycardia and was found to be in atrial tachycardia at 170 beats a minute. He was cardioverted by Dr. Lu. The patient went into atrial flutter last night. He was started on amiodarone. He was started on heparin and initiated Coumadin yesterday. This morning, the patient is in atrial flutter with stable rhythm. Cardioversion was recommended to reestablish normal sinus rhythm. PROCEDURE IN DETAIL: The patient was in a fasting state. Informed consent had been obtained prior to the procedure. All labs were reviewed. The patient was given 5 mg of Versed and 50 mcg of fentanyl for conscious sedation. The patient was cardioverted with 150 joules of synchronized biphasic energy. The patient converted to normal sinus rhythm. The patient tolerated the procedure well. There were no complications. The patient will be discharged home on amiodarone and Coumadin. His INR should be greater than 2 when he is discharged from the hospital. The patient will go home on his LifeVest. He will follow up with Dr. Mendes. CC: Dr. Mendes; Fadi Lu MD * [id number]/[facility] #: [id number] MTDD
[2016-06-06] MEDS: Bacitracin OINTMENT* 0.5% 0.5 oz TUBE TOPICAL SCH (22:09)
[2016-06-06] MEDS: Atorvastatin* 80 MG TAB PO SCH (22:14)
[2016-06-06] MEDS: Latanoprost 0.005%* 2.5 ml BTL BOTH EYES SCH (22:14)
[2016-06-07 06:07] LABS: Hematocrit 37 % (42-52); Hemoglobin 12.3 g/dl (14.0-18.0); Mean Corpuscular HGB Conc 33 g/dl (31-36); Mean Corpuscular Hemoglobin 31 pg (27-31); Mean Corpuscular Volume 92 fL (80-94); Mean Platelet Volume 8 um3 (7.4-10.4); Red Blood Count 4.03 10^6/ul (4.0-5.4); Red Cell Distribution Width 13 % (10.5-15); White Blood Count 7.5 10^3/ul (3.5-10.8)
[2016-06-07] MEDS: Bacitracin OINTMENT* 0.5% 0.5 oz TUBE TOPICAL SCH (09:01)
[2016-06-07] MEDS: Amiodarone TAB* 400 MG PO SCH (09:02)
[2016-06-07] MEDS: Insulin LISPRO* 1 UNITS UNIT SUBCUT SCH ×2 (09:02→12:37)
[2016-06-07] MEDS: Aspirin Low Dose CHEW TAB* 81 MG PO SCH (09:02)
[2016-06-07] MEDS: Carvedilol TAB* 6.25 MG PO SCH (09:03)
[2016-06-07] MEDS: Lisinopril TAB* 5 MG PO SCH (09:03)
[2016-06-07] MEDS: CMCS - Prasugrel (NF) 10 MG PO SCH (09:30)
[2016-06-07] MEDS: Timolol 0.5% OPTH.SOL* BTL BOTH EYES SCH (09:30)
--- NOTE | 2016-06-07 10:10 | ECHO ---
Patient: BECKI PALMER [facility] Rec#: [id number] : 1960 Date: 06/07/2016 Age: 56y Height: 167.64 cm / 66.0 in Weight: 66.22 kg / 145.9 lbs Sex: M BSA: 1.75 Room#: [facility] Admit Date#: 06/04/2016 Type: Inpatient Referring: Fadi Lu MD Reading: Deuce Monge MD Special Events Director: Mercy Argueta RDCS CC: Sekou Arredondo MD Transthoracic Echocardiogram Indication: CAD/CMP BP: 115/61 HR: 59 Rhythm: Bradycardia Findings History: STEMI 05/18/16,ischemic cardiomyopathy,former tobacco use,HLD,HTN,DM. Technical Comments: The study is technically limited due to poor acoustic windows. The study is technically limited due to the patient's smoking history. Completed at 0835. Left Ventricle: The left ventricle is not well visualized.The apex is never really seen well. The left ventricular chamber size is normal. Posterior wall hypertrophy is observed. There is a focal wall motion abnormality present.The mid to distal anterior wall is virtually akinetic with distal septal and apical thinning. The estimated ejection fraction is 25-30%. VIsually estimated LVEF perhaps closer to 30 %, but not well visualized in all views. The assessment of diastolic function is non-diagnostic. The mid anterior, mid inferior, mid inferoseptal, apical septal, apical anterior, apical lateral, and apical inferior wall segments are hypokinetic (score 2). Overall wallmotion score index is 1.44 Left Atrium: The left atrial chamber size is normal. Right Ventricle: The right ventricular cavity size is normal. The right ventricular global systolic function is normal. Right Atrium: The right atrial cavity size is normal. Aortic Valve: The aortic valve structure is not well visualized. There is no evidence of aortic regurgitation. There is no evidence of aortic stenosis. Mitral Valve: The mitral valve leaflets appear normal. There is a trace of mitral regurgitation. There is no evidence of mitral stenosis. Tricuspid Valve: The tricuspid valve leaflets are normal. Pulmonic Valve: The pulmonic valve structure is not well visualized. Pericardium: A pericardial effusion is visualized.It appears to be small anteriorly , more moderate in size inferior/posteriorly. There are no signs of significant hemodynamic compromise. There is a circumferential pericardial effusion. A left pleural effusion is present. There is a moderate pleural effusion. Aorta: There is no dilatation of the ascending aorta. The aortic arch is not well visualized. There is no dilation of the aortic root. Pulmonary Artery: The main pulmonary artery appears normal. Conclusions The left ventricular chamber size is normal. There is a focal wall motion abnormality present.The mid to distal anterior wall is virtually akinetic with distal septal and apical thinning. The estimated ejection fraction is 25-30%. VIsually estimated LVEF perhaps closer to 30 %, but not well visualized in all views. There is a trace of mitral regurgitation. A pericardial effusion is visualized.It appears to be small anteriorly , more moderate in size inferior/posteriorly. There are no signs of significant hemodynamic compromise. A left pleural effusion is present. There is a moderate pleural effusion. Compared to report of study from 05/20/2016 the LV systolic function is minimally improved the pericardial effusion is mildly increased, and the pleural effusion is now noted. Measurements Name Value Normal Range RVIDd (AP) 2D 2.2 cm (0.9 - 2.6) RVDdMajor (2D) 2.1 cm (2.2 - 4.4) RAd ISD 4CH 4.2 cm (3.4 - 4.9) RA (A4C)W 3.2 cm (2.9 - 4.6) IVSd (2D) 0.9 cm (0.6 - 1) LVPWd (2D) 1.3 cm (0.6 - 1) LVIDd (2D) 5 cm (3.6 - 5.4) LVIDs (2D) 3.7 cm - LV FS (2D) 26 % (25 - 45) Aortic Annulus 2 cm (1.4 - 2.6) Ao root diameter (2D) 3 cm (2.1 - 3.5) Ascending Ao 3.4 cm (2.1 - 3.4) LA dimension (AP) 2D 3.2 cm (2.3 - 3.8) LAd ISD 4CH 5.3 cm (2.9 - 5.3) LA ISD 4CH W 4.7 cm (2.5 - 4.5) Name Value Normal Range MV E-wave Vmax 0.6 m/sec - MV deceleration time 255 msec - MV A-wave Vmax 0.5 m/sec - MV E:A ratio 1.11 ratio - LV septal e' Vmax 0.07 m/sec - LV lateral e' Vmax 0.08 m/sec - LV E:e' septal ratio 8.57 ratio - LV E:e' lateral ratio 7.5 ratio - Name Value Normal Range AV Vmax 1.2 m/sec - AV VTI 32.7 cm - AV peak gradient 5.76 mmHg - AV mean gradient 2.8 mmHg - LVOT Vmax 1 m/sec - LVOT VTI 22.8 cm - LVOT peak gradient 4.22 mmHg - LVOT mean gradient 1.93 mmHg - Name Value Normal Range IVC diameter 1.9 cm - Name Value Normal Range PV Vmax 1 m/sec - PV peak gradient 4.37 mmHg - Wallmotion BAS Normal BA Normal BAL Normal LISSY Normal BI Normal BIS Normal MAS Normal MA Hypokinetic MAL Normal MIL Normal IA Hypokinetic MIS Hypokinetic Hypokinetic AA Hypokinetic AL Hypokinetic AI Hypokinetic APEX Hypokinetic
[2016-06-07] MEDS ORDERED: Enoxaparin(*) 60 MG/0.6 ML SYR SUBCUT SCH (12:00)
--- NOTE | 2016-06-07 13:51 | DCNOTE ---
Patient seen this morning and again in the afternoon. Feeling well overall. No chest pain, palpitations. Thought he had a brief episode of SOB this AM that resolved. Ambulated around the unit. On exam, mild bradycardia, no m/g/r, lungs CTA B/L, LUE with mild erythema and edema that has been improving throughout the day. Patient able to adequately administer Lovenox shots. Will plan to discharge home on BID Lovenox until INR is between 2-3. Coumadin chosen due to relative ease of reversibility in the setting of triple therapy with ASA and effient. Continue Amiodarone and Digoxin in addition to previous cardiac medications.
[2016-06-07 13:52] VITALS: BP 94/45
--- NOTE | 2016-06-21 19:56 | ED ---
Ortiz Paris Matthew, scribed for Labmert Chapman MD on 06/04/16 at 0630 . Palpitations / Dysrhythmia - HPI Summary HPI Summary: A 56 y/o male presents to the ED with palpitations since yesterday evening and throughout the night. The patient's life vest has also been activating multiple times throughout the night. He called the company who told him his heart rate was between 140-160. Associated symptoms include SOB. - History of Current Complaint Chief Complaint: EDDysrhythmPalp Time Seen by Provider: 06/04/16 06:21 Hx Obtained From: Patient Onset/Duration: Sudden Onset, Lasting Hours, Still Present Timing: Constant Severity Initially: Moderate Severity Currently: Moderate Character: Fast Aggravating: Nothing Alleviating: Nothing Associated Signs & Symptoms: Shortness of Breath - Allergy/Home Medications Allergies/Adverse Reactions: Allergies Allergy/AdvReac Type Severity Reaction Status Date / Time No Known Allergies Allergy Verified 05/18/16 19:08 PMH/Surg Hx/FS Hx/Imm Hx Endocrine/Hematology History: Reports: Hx Diabetes Cardiovascular History: Reports: Hx Hypertension, Hx Myocardial Infarction Sensory History: Reports: Hx Glaucoma Opthamlomology History: Reports: Hx Glaucoma Infectious Disease History: No Infectious Disease History: Denies: Traveled Outside the [place] in Last 30 Days - Family History Known Family History: Positive: Cardiac Disease - Social History Alcohol Use: Occasionally Substance Use Type: Reports: None Hx Tobacco Use: Yes Smoking Status (MU): Current Every Day Smoker Type: Cigarettes Have You Smoked in the Last Year: Yes Review of Systems Constitutional: Negative Eyes: Negative ENT: Negative Positive: Palpitations Positive: Shortness Of Breath Gastrointestinal: Negative Genitourinary: Negative Musculoskeletal: Negative Skin: Negative Neurological: Negative Psychological: Normal All Other Systems Reviewed And Are Negative: Yes Physical Exam Triage Information Reviewed: Yes Vital Signs On Initial Exam: Initial Vitals Temp Pulse Resp BP Pulse Ox 97.7 F 155 13 107/64 99 06/04/16 06:20 06/04/16 06:20 06/04/16 06:20 06/04/16 06:20 06/04/16 06:20 Vital Signs Reviewed: Yes Appearance: Positive: Well-Appearing, No Pain Distress Skin: Positive: Warm Eyes: Positive: HERIBERTO ENT: Positive: Hearing grossly normal Neck: Positive: Supple Respiratory/Lung Sounds: Positive: Clear to Auscultation, Breath Sounds Present Cardiovascular: Positive: IRR, Tachycardia Abdomen Description: Positive: Nontender, Soft Bowel Sounds: Positive: Present Musculoskeletal: Positive: Strength/ROM Intact Diagnostics - Vital Signs Vital Signs Temp Pulse Resp BP Pulse Ox 06/04/16 06:20 97.7 F 155 13 107/64 99 - Laboratory Lab Results: Lab Results 06/04/16 06/04/16 06/04/16 Range/Units 06:28 06:28 06:28 WBC 18.1 H (3.5-10.8) 10^3/ul RBC 4.45 (4.0-5.4) 10^6/ul Hgb 13.5 L (14.0-18.0) g/dl Hct 41 L (42-52) % MCV 93 (80-94) fL MCH 30 (27-31) pg MCHC 33 (31-36) g/dl RDW 13 (10.5-15) % Plt Count 405 (150-450) 10^3/ul MPV 8 (7.4-10.4) um3 Neut % (Auto) 78.0 (38-83) % Lymph % (Auto) 11.0 L (25-47) % [place] % (Auto) 10.0 H (1-9) % Eos % (Auto) 0.2 (0-6) % Baso % (Auto) 0.8 (0-2) % Absolute Neuts (auto) 14.1 H (1.5-7.7) 10^3/ul Absolute Lymphs (auto) 2.0 (1.0-4.8) 10^3/ul Absolute Monos (auto) 1.8 H (0-0.8) 10^3/ul Absolute Eos (auto) 0 (0-0.6) 10^3/ul Absolute Basos (auto) 0.1 (0-0.2) 10^3/ul Absolute Nucleated RBC 0 10^3/ul Nucleated RBC % 0 Sodium 129 L (133-145) mmol/L Potassium 4.9 (3.5-5.0) mmol/L Chloride 96 L (101-111) mmol/L Carbon Dioxide 25 (22-32) mmol/L Anion Gap 8 (2-11) mmol/L BUN 35 H (6-24) mg/dL Creatinine 1.17 (0.67-1.17) mg/dL Est GFR ( Amer) 82.3 (>60) Est GFR (Non-Af Amer) 64.0 (>60) BUN/Creatinine Ratio 29.9 H (8-20) Glucose 186 H (70-100) mg/dL Lactic Acid 1.7 (0.5-2.0) mmol/L Calcium 9.3 (8.6-10.3) mg/dL Magnesium 2.1 (1.9-2.7) mg/dL Total Bilirubin 1.10 H (0.2-1.0) mg/dL AST 20 (13-39) U/L ALT 30 (7-52) U/L Alkaline Phosphatase 99 (34-104) U/L Troponin I 0.05 H* (<0.04) ng/mL B-Natriuretic Peptide ( - 100) pg/mL Total Protein 6.8 (6.4-8.9) g/dL Albumin 3.5 (3.2-5.2) g/dL Globulin 3.3 (2-4) g/dL Albumin/Globulin Ratio 1.1 (1-3) 06/04/ Range/Units 06:28 WBC (3.5-10.8) 10^3/ul RBC (4.0-5.4) 10^6/ul Hgb (14.0-18.0) g/dl Hct (42-52) % MCV (80-94) fL MCH (27-31) pg MCHC (31-36) g/dl RDW (10.5-15) % Plt Count (150-450) 10^3/ul MPV (7.4-10.4) um3 Neut % (Auto) (38-83) % Lymph % (Auto) (25-47) % [place] % (Auto) (1-9) % Eos % (Auto) (0-6) % Baso % (Auto) (0-2) % Absolute Neuts (auto) (1.5-7.7) 10^3/ul Absolute Lymphs (auto) (1.0-4.8) 10^3/ul Absolute Monos (auto) (0-0.8) 10^3/ul Absolute Eos (auto) (0-0.6) 10^3/ul Absolute Basos (auto) (0-0.2) 10^3/ul Absolute Nucleated RBC 10^3/ul Nucleated RBC % Sodium (133-145) mmol/L Potassium (3.5-5.0) mmol/L Chloride (101-111) mmol/L Carbon Dioxide (22-32) mmol/L Anion Gap (2-11) mmol/L BUN (6-24) mg/dL Creatinine (0.67-1.17) mg/dL Est GFR ( Amer) (>60) Est GFR (Non-Af Amer) (>60) BUN/Creatinine Ratio (8-20) Glucose (70-100) mg/dL Lactic Acid (0.5-2.0) mmol/L Calcium (8.6-10.3) mg/dL Magnesium (1.9-2.7) mg/dL Total Bilirubin (0.2-1.0) mg/dL AST (13-39) U/L ALT (7-52) U/L Alkaline Phosphatase (34-104) U/L Troponin I (<0.04) ng/mL B-Natriuretic Peptide 397 H ( - 100) pg/mL Total Protein (6.4-8.9) g/dL Albumin (3.2-5.2) g/dL Globulin (2-4) g/dL Albumin/Globulin Ratio (1-3) Result Diagrams: 06/07/16 05:18 06/07/16 05:18 Lab Statement: Any lab studies that have been ordered have been reviewed, and results considered in the medical decision making process. - EKG 06:19 Cardiac Rate: Tachycardia - 156 bpm EKG Rhythm: SVT ST Segment: Non-Specific Course/Dx - Diagnoses Provider Diagnoses: SVT (supraventricular tachycardia) - Physician Notifications Discussed Care Of Patient With: Dr. Mendes (Interventionalist) at 06:58 -- Notified of patient's history Discharge - Discharge Plan Condition: Good Disposition: ADMITTED TO [facility] Discharge Disposition Comment: The patient is signed out to Dr. Bland pending lab results. The documentation as recorded by the Ortiz mcmillan Matthew accurately reflects the service I personally performed and the decisions made by , Lambert Chapman MD.
--- NOTE | 2016-09-12 03:59 | DS ---
DISCHARGE SUMMARY: DATE OF ADMISSION: 06/04/16 DATE OF DISCHARGE: 06/07/16 PRIMARY CARE PHYSICIAN: Dr. Arredondo. PRINCIPAL DISCHARGE DIAGNOSES: 1. Narrow complex tachycardia. 2. Atrial flutter. SECONDARY DIAGNOSES: 1. Coronary artery disease. 2. Hypertension. 3. Diabetes. 4. Ischemic cardiomyopathy with ejection fraction of 20% to 25%. 5. Dyslipidemia. DISCHARGE MEDICATION REGIMEN: 1. Amiodarone 400 mg by mouth 3 times daily. 2. Digoxin 0.125 mg by mouth nightly. 3. Lovenox 60 mg subcu every 12 hours. 4. Coumadin 5 mg by mouth daily. 5. Metformin 1000 mg by mouth 2 times daily. 6. Nitroglycerin 0.4 mg sublingual every 5 minutes as needed for angina. 7. Prasugrel 10 mg by mouth daily. 8. Quinapril 10 mg by mouth daily. 9. Sildenafil 100 mg by mouth daily. 10. Timolol 1 drop in both eyes daily. 11. Aspirin 81 mg by mouth daily. 12. Atorvastatin 80 mg by mouth nightly. 13. Coreg 12.5 mg by mouth 2 times daily. 14. Latanoprost 0.005% one drop in both eyes at bedtime. STUDIES DONE DURING HOSPITALIZATION: Chest x-ray, impression: No active cardiopulmonary disease is noted. Transthoracic echocardiogram, conclusion: Left ventricular chamber size is normal. There is focal wall motion abnormality present. The mid to distal anterior wall is virtually akinetic with distal septal and apical thinning. Estimated ejection fraction is 25% to 30%. There is trace mitral regurgitation. The pericardial effusion is visualized and appears to be small anteriorly, more moderate in size inferiorly and posteriorly. There are no signs of significant hemodynamic compromise. A left pleural effusion is present. There is a moderate pleural effusion compared to the report of study from 05/20/16. The LV systolic function is minimally improved. The pericardial effusion is mildly increased and the pleural effusion is not noted. HPI AND HOSPITAL SUMMARY: Please see the full history and physical by Prachi Dailey NP, for full details. Briefly, Mr. Martines is a 56-year- old male with past medical history as above, who presented to the emergency room due to his LifeVest alarming. This was few weeks after a recent ST- elevation [place] with stent placement. The patient called [employer], who instructed him that his heart rate was 150 and he then got in touch with Dr. Lu, amortization schedule clerk on-call, who instructed the patient to come to the emergency department. In the ED, the patient was seen by Dr. Lu of Cardiology, he underwent amiodarone loading and a cardioversion with return to normal sinus rhythm. The patient was monitored overnight, continued on amiodarone; however, he then converted into atrial flutter. Digoxin was added to the patient's regimen and he was started on heparin drip as well as Coumadin. Dr. Forrester evaluated the patient and subsequently did a second cardioversion. After this, the patient converted to normal sinus rhythm and stayed in that rhythm. He was discharged on amiodarone and digoxin as well as Lovenox shots until his INR is therapeutic as an outpatient. The patient will be discharged to home and follow up with Cardiology and with his PCP as an outpatient. TIME SPENT: Total time spent on this discharge 35 minutes; this is a summary of the hospitalization, please see the full medical record for further details. CC: Dr. Arredondo* [id number]/[facility] #: [id number] LIAM
== END 2016-06-07 16:00 | disposition home or self-care (01) | DRG 201 ==
LOC: ED 06:19 → ICU 08:17 → MEDTELE 06-06 13:42
PROVIDERS: ADMIT Hospitalist; ATTEND Hospitalist
PROC: 5A2204Z Restoration of Cardiac Rhythm, Single (ICD-10-PCS; principal; 2016-06-04)
PROC: 5A2204Z Restoration of Cardiac Rhythm, Single (ICD-10-PCS; 2016-06-06)
DX: I47.1 Supraventricular tachycardia (principal); I21.09 ST elevation (STEMI) myocardial infarction involving other coronary artery of anterior wall; I50.20 Unspecified systolic (congestive) heart failure; I11.0 Hypertensive heart disease with heart failure; E87.1 Hypo-osmolality and hyponatremia; E11.9 Type 2 diabetes mellitus without complications; D72.829 Elevated white blood cell count, unspecified; I48.92 Unspecified atrial flutter; I25.10 Atherosclerotic heart disease of native coronary artery without angina pectoris; Z95.5 Presence of coronary angioplasty implant and graft; Z79.84 Long term (current) use of oral hypoglycemic drugs; J06.9 Acute upper respiratory infection, unspecified; E78.5 Hyperlipidemia, unspecified; I25.5 Ischemic cardiomyopathy; Z87.891 Personal history of nicotine dependence; Z79.82 Long term (current) use of aspirin; Z79.899 Other long term (current) drug therapy; Z82.49 Family history of ischemic heart disease and other diseases of the circulatory system; Z83.3 Family history of diabetes mellitus; Z80.3 Family history of malignant neoplasm of breast; Z80.0 Family history of malignant neoplasm of digestive organs
CPT/HCPCS: 36415; 71010; 80048; 80053; 80162; 83605; 83735; 83880; 84484; 84520; 85025; 85610; 85730; 87040; 87502; 92960; 93005; 93306; A9270-GY; J0153; J0282; J1160; J1644; J1650; J2250; J2310; J3010; J3490

== ENCOUNTER 2017-03-27 07:16 | Day surgery (SDC) | payer BC ==
[~2017-03-27 07:16] MED LIST: Acetaminophen TAB* 325 MG PO PRN; Buffered Lidocaine 0.9% SYRIN* 5 ML/SYR SYRINGE INTRADERM ONE
[2017-03-27] MEDS ORDERED: Midazolam* 1 MG/ML 2 ML VIAL (2 MG) ONE (07:47)
[2017-03-27 09:02] VITALS: BP 116/69
--- NOTE | 2017-03-27 09:51 | OP ---
DATE OF OPERATION: 03/27/17 - [facility] DATE OF : 56 SURGEON: Niraj Piper MD. ANESTHESIOLOGIST: Irma Hernandez MD ANESTHESIA: Monitored anesthesia care. PRE-OP DIAGNOSIS: Cataract, left eye. POST-OP DIAGNOSIS: Cataract, left eye. OPERATIVE PROCEDURE: Cataract surgery, left eye. IMPLANTS: SN60WF 20.0 diopter lens, left eye. COMPLICATIONS: None. DESCRIPTION OF PROCEDURE: The patient was given phenylephrine 2.5% and cyclopentolate 1% eye drops to the operative eye in the preoperative area. The patient was brought to the operating room where a time-out was taken to identify the current patient, side, and site of the surgery. The patient's left eye was prepped and draped in the usual sterile fashion with 5% Betadine. A second time- out was taken to verify the correct patient, side and site of surgery, and correct lens selection. A lid speculum was placed to the left eye. A 1-mm paracentesis blade was used to make a clear corneal incision in the inferotemporal position. Preservative-free 1% lidocaine was injected into the anterior chamber. DisCoVisc was then injected in the anterior chamber. A 2.75-mm keratome blade was used to make a triplanar incision at the superotemporal position. A cystotome initiated a capsulorrhexis, which was completed with Utrata forceps in a continuous and curvilinear manner. Hydrodissection of the lens was performed with BSS on a cannula. The lens could be spun in the capsular bag. The phacoemulsification handpiece was used with a [id number] technique to remove the nucleus in its entirety with 18.20 CDE. The I/A handpiece then removed the residual cortical lens material. DisCoVisc was injected to inflate the capsular bag. The planned SN60WF 20.0 diopter lens was injected in the capsular bag. The residual DisCoVisc was removed from the eye with the I/A handpiece. The corneal incisions were hydrated and no leaks occurred at physiologic pressure around 20 mmHg per palpation. The lid speculum was removed and drapes removed. Maxitrol ointment was placed to the surface of the operative eye. An adhesive patch and shield was placed in the operative eye. The patient was taken to the postoperative area in stable condition. [id number]/[facility] #: [id number] MTDD
[2017-03-27] MEDS ORDERED: Povidone Iodine 5% OPTH* 30 ML BTL ONE (11:32)
[2017-03-27] MEDS ORDERED: Flurbiprofen 0.03% OPTH.SOL* 2.5 ML BTL ONE (11:32)
[2017-03-27] MEDS ORDERED: Cyclopentolate 1% OPTH.SOL* 2 ML BTL ONE (11:32)
[2017-03-27] MEDS ORDERED: Tetracaine 0.5% OPTH.SOL 4 ML* 1 DROP BTL ONE (11:32)
[2017-03-27] MEDS ORDERED: Tropicamide 1% OPTH.SOL* BTL ONE (11:32)
[2017-03-27] MEDS ORDERED: Lidocaine 1% MPF* 2 ML VIAL ONE (11:32)
[2017-03-27] MEDS ORDERED: Neomycin/Polymy/Dex OPHTH.OIN* 3.5 GM ONE (11:32)
[2017-03-27] MEDS ORDERED: Phenylephrine 2.5% OPTH.SOL* 2 ML BTL ONE (11:32)
[2017-03-27] MEDS ORDERED: acetaZOLAMIDE TAB* 250 MG ONE (11:32)
[2017-03-27] MEDS ORDERED: Buffered Lidocaine 0.9% SYRIN* 5 ML/SYR SYRINGE ONE (11:33)
== END 2017-03-27 09:15 | disposition home or self-care (01) ==
LOC: OREAST 07:16
PROVIDERS: ATTEND Student in an Organized Health Care Education/Training Program
DX: H25.812 Combined forms of age-related cataract, left eye (principal); H40.1131 Primary open-angle glaucoma, bilateral, mild stage; E11.9 Type 2 diabetes mellitus without complications; Z79.84 Long term (current) use of oral hypoglycemic drugs; Z87.891 Personal history of nicotine dependence; I10 Essential (primary) hypertension; I25.10 Atherosclerotic heart disease of native coronary artery without angina pectoris; I48.0 Paroxysmal atrial fibrillation; I25.5 Ischemic cardiomyopathy; Z95.0 Presence of cardiac pacemaker
CPT/HCPCS: A9270-GY; J2250; V2632

== ENCOUNTER → 2018-10-30 15:10 | Emergency (ER) | payer BC ==
[~2018-10-30 15:10] MED LIST changes: +Acetaminophen TAB* 325 MG PO ONE; -Acetaminophen TAB* 325 MG PO PRN; -Buffered Lidocaine 0.9% SYRIN* 5 ML/SYR SYRINGE INTRADERM ONE; +Iodixanol* (CONTRAST) 320 MG/ML 100 ML SDV IV ONE; +NS 0.9% 1000 ML** 1,000 ML IV ONE
--- NOTE | 2018-10-30 16:00 | ED ---
Lower Extremity - HPI Summary HPI Summary: This pt is a 58 y/o male presenting to [facility] c/o left leg heaviness today. Pt reports he was installing floor while kneeling down when he stood up and went to move a couple of things. He notes he suddenly became diaphoretic and couldn' t move his left leg. Pt states his left leg felt heavy and had a burning sensation that radiated up to his left hip. He reports he was unable to ambulate. Denies any pain, left leg pain. Denies chest pain, SOB, back pain, urinary or fecal dysfunction. Pt currently still reports numbness on his left leg. He took a nitroglycerin ARCHITECTURAL PRACTICE MANAGER at 14:00 without relief. PMHx includes DM, [place] 2 years ago (had heart burn and jaw pain). He is a former smoker, quit 2 years ago. Pt takes a low dose of aspirin. - History of Current Complaint Chief Complaint: EDExtremityLower Stated Complaint: LT LEG BURNING SENSATION PER PT Time Seen by Provider: 10/30/18 15:46 Hx Obtained From: Patient Mechanism Of Injury: Other - no known trauma Onset of Pain: Hours Onset/Duration: Still Present Severity Currently: None Pain Intensity: 0 Pain Scale Used: 0-10 Numeric Timing: Constant Location: Is Discrete @ - left leg Associated Signs And Symptoms: Positive: Other - left leg heaviness, left leg burning sensation Aggravating Factor(s): Nothing Alleviating Factor(s): Nothing Able to Bear Weight: Yes - Allergies/Home Medications Allergies/Adverse Reactions: Allergies Allergy/AdvReac Type Severity Reaction Status Date / Time No Known Allergies Allergy Verified 10/30/18 15:11 Home Medications: Home Medications Albuterol/Ipratropium RESP(NF) [Combivent Respimat(NF)] 1 puff INH QID 10/30/18 [History Confirmed 10/30/18] Atorvastatin* [Lipitor 80 MG*] 80 mg PO BEDTIME 10/30/18 [History Confirmed ] Carvedilol TAB* [Coreg TAB*] 25 mg PO BID 10/30/18 [History Confirmed 10/30/18] Digoxin TAB* [Lanoxin TAB*] 0.125 mg PO QPM 10/30/18 [History Confirmed 10/30/18 ] Quinapril (NF) [Accupril (NF)] 40 mg PO DAILY 10/30/18 [History Confirmed ] glipiZIDE TAB* [Glucotrol TAB*] 10 mg PO BID 10/30/18 [History Confirmed ] metFORMIN* [Glucophage 500 MG TAB *] 1,000 mg PO BID 10/30/18 [History Confirmed 10/30/18] PMH/Surg Hx/FS Hx/Imm Hx Endocrine/Hematology History: Reports: Hx Diabetes - type 2 Denies: Hx Anemia, Hx Unexplained Bleeding Cardiovascular History: Reports: Hx Congestive Heart Failure - systolic, Hx Coronary Artery Disease, Hx Hypotension, Hx Hypertension - controlled with med, Hx Myocardial Infarction - May 2016, Hx Pacemaker/ICD - defibrillator/event monitor Denies: Hx Aneurysm, Hx Angina, Hx Angioplasty, Hx Auto Implanted Cardiovert Defib - lefe vest, Hx Cardiac Arrest, Hx Cardiomegaly, Hx Congenital Heart Disease, Hx Deep Vein Thrombosis, Hx Embolism, Hx Hypercholesterolemia, Hx Peripheral Vascular Disease, Hx Rheumatic Fever, Hx Syncope, Hx Valvular Heart Disease, Other Cardiovascular Problems/Disorders Musculoskeletal History: Reports: Hx Arthritis - hands, Hx Tendonitis - left hand/shoulders Sensory History: Reports: Hx Cataracts - left eye, Hx Contacts or Glasses - glasses, Hx Glaucoma - left Denies: Hx Hearing Aid Opthamlomology History: Reports: Hx Cataracts - left eye, Hx Contacts or Glasses - glasses, Hx Glaucoma - left Neurological History: Reports: Hx Nerve Disease - beginning of diabetic neuropathy in feet - Cancer History Hx Chemotherapy: No - Surgical History Surgery Procedure, Year, and Place: cardiac surgery with [id number]. catherization to heart. right eye cataract with IOL 2011 Hx Anesthesia Reactions: No Infectious Disease History: No Infectious Disease History: Denies: Hx of Known/Suspected MRSA, Traveled Outside the [place] in Last 30 Days - Family History Known Family History: Positive: Cardiac Disease - paternal uncles, Diabetes - Brother Family History: Mother with esophageal CA. Sister with breast CA. Brother with intestinal CA - Social History Alcohol Use: None Substance Use Type: Reports: None Hx Tobacco Use: Yes Smoking Status (MU): Former Smoker Type: Cigarettes Amount Used/How Often: smoked for over 40 years 2.5 - 3 ppd Have You Smoked in the Last Year: Yes Review of Systems Positive: Skin Diaphoresis. Negative: Fever, Chills Negative: Chest Pain Negative: Shortness Of Breath Negative: Other - NEGATIVE: back pain Neurological: Other - POSITIVE: left leg heaviness, left leg burning sensation Positive: Numbness - left leg All Other Systems Reviewed And Are Negative: Yes Physical Exam - Summary Physical Exam Summary: VITAL SIGNS: Reviewed. GENERAL: Patient is a well-developed and nourished male who is lying comfortable in the stretcher. Patient is not in any acute respiratory distress. HEAD AND FACE: No signs of trauma. No ecchymosis, hematomas or skull depressions. No sinus tenderness. EYES: PERRLA, EOMI x 2, No injected conjunctiva, no nystagmus. EARS: Hearing grossly intact. Ear canals and tympanic membranes are within normal limits. MOUTH: Oropharynx within normal limits. NECK: Supple, trachea is midline, no adenopathy, no JVD, no carotid bruit, no c- spine tenderness, neck with full ROM. CHEST: Symmetric, no tenderness at palpation LUNGS: Clear to auscultation bilaterally. No wheezing or crackles. CVS: Regular rate and rhythm, S1 and S2 present, no murmurs or gallops appreciated. ABDOMEN: Soft, non-tender. No signs of distention. No rebound, no guarding, and no masses palpated. Bowel sounds are normal. RECTAL EXAM: Tami, ED nurse, present as nuclear cardiology technologist. Normal exam. MSK: FROM in all major joints, no edema, no cyanosis or clubbing. No lumbar spine tenderness. Slightly decreased pulse in left foot compared to the right foot. NEURO: Alert and oriented x 3. No acute neurological deficits, however he says his left leg is numb. Speech is normal and follows commands. SKIN: Dry and warm GCS: 15 Triage Information Reviewed: Yes Vital Signs On Initial Exam: Initial Vitals Temp Pulse Resp BP Pulse Ox 98.5 F 74 16 172/76 95 10/30/18 15:11 10/30/18 15:11 10/30/18 15:11 10/30/18 15:11 10/30/18 15:11 Vital Signs Reviewed: Yes Diagnostics - Vital Signs Vital Signs Temp Pulse Resp BP Pulse Ox 10/30/18 15:11 98.5 F 74 16 172/76 95 - Laboratory Result Diagrams: 10/30/18 16:09 10/30/18 16:09 Lab Statement: Any lab studies that have been ordered have been reviewed, and results considered in the medical decision making process. - CT CTA Left lower extremity CT Interpretation Completed By: Radiologist Summary of CT Findings: IMPRESSION: Atherosclerosis. There is moderate to severe focal stenosis of the midportion of the left superficial femoral artery with high-grade multifocal stenosis of the tibioperoneal trunk. 3 vessels are noted to the ankle. The posterior tibial artery crosses the ankle. Evaluation of the dorsal and plantar arches is limited. Dr. Hernandez has reviewed this report. National Institutes Of Health - NIH Scale Level of Consciousness: Alert/Keenly Responsive Ask Patient the Month and His/Her Age: Both Correct Ask Pt to Open/Close Eyes and Hot Cell Technician/Release Non-Paretic Hand: Both Correctly Best Gaze (Only Horizontal Eye Movement): Normal Visual Field Testing: No Visual Loss Facial Paresis-Pt to Smile & Close Eyes or Grimace Symmetry: Normal/Symmetrical Motor Function - Right Arm: No Drift-Holds 10 Seconds Motor Function - Left Arm: No Drift-Holds 10 Seconds Motor Function - Right Leg: No Drift-Holds 10 Seconds Motor Function - Left Leg: No Drift-Holds 10 Seconds Limb Ataxia-Must be out of Proportion to Weakness Present: Absent Sensory (Use Pinprick to Test Arms/Legs/Trunk/Face): Normal Best Language (Describe Picture, Name Items): No Aphasia Dysarthria (Read Several Words): Normal Extinction and Inattention: No Abnormality Total Score: 0 Re-Evaluation - Re-Evaluation First Eval Re-Evaluation Time: 17:54 Comment: Reviewed lab and CTA results with the pt. He will wait for second lactic acid before he is discharged home. Second Eval Re-Evaluation Time: 19:55 Change: Improved Comment: Reviewed second lactic acid with pt. Pt will be discharged home with follow up from vascular surgeon and PCP. Lower Extremity Course/Dx - Course Assessment/Plan: Pt is a 58 y/o male who presents to the ED for left leg heaviness today. Pt reports he was installing floor while kneeling down when he stood up and went to move a couple of things. He notes he suddenly became diaphoretic and couldn't move his left leg. Pt states his left leg felt heavy and had a burning sensation that radiated up to his left hip. He reports he was unable to ambulate. Denies any pain, left leg pain. Denies chest pain, SOB, back pain, urinary or fecal dysfunction. Pt currently still reports numbness on his left leg. Past medical history significant for atrial flutter only an aspirin, hypertension, coronary artery disease, dyslipidemia, insulin-dependent diabetes, congestive heart failure, STEMI. On physical exam the patient has decreased pulses in the left lower extremity compared to the right. However, the patient still has pulses. Test results without any significant abnormality except for hemoglobin 13.1 and hematocrit is 40, creatinine is 1.3, glucose 220 , lactic acid is 4.4, and urinalysis positive for ketones. The patient does not have any back pain, the rectal exam was normal, he doesnt have any urinary or fecal dysfunction, therefore I do not believe that the patient has a cauda equina. The patient also has a normal neurological exam. NIH score is equal to 0 and the [place] Coma Score was 15. However the patient reports that he still feels numbness in the left lower extremity and in the physical exam the patient has slight decreased pulses in the left lower extremity compared to the right. Because of the history of atrial flutter without any blood thinners I decided to do a CTA to rule out any arterial occlusion. Repeat lactic acid is 1.6. CTA LLE IMPRESSION: ATHEROSCLEROSIS. THERE IS MODERATE TO SEVERE FOCAL STENOSIS OF THE MIDPORTION OF THE LEFT SUPERFICIAL FEMORAL ARTERY WITH HIGH- GRADE MULTIFOCAL STENOSIS OF THE TIBIOPERONEAL TRUNK. 3 VESSELS ARE NOTED TO THE ANKLE. THE POSTERIOR TIBIAL ARTERY CROSSES THE ANKLE. EVALUATION OF THE DORSAL AND PLANTAR ARCHES IS LIMITED. Therefore, I do not believe that the patient has an arterial occlusion at this time, however the family and the patient are aware the patient has atherosclerosis which he should be taking care of soon. The patient will be referred to a vascular surgeon and also the primary care physician. Patient was advised to start full dose of aspirin. He was also recommended to return to the emergency department if he develops any other episodes of left lower extremity weakness, numbness, if the left lower extremity becomes cold or has any other symptoms. The patient understands and agrees. At this point the patient has good pulses, good capillary refill, therefore he will be discharged home with follow-up from his PCP. Also all the patients symptoms have resolved. - Diagnoses Provider Diagnoses: Atherosclerosis of left lower extremity Discharge - Sign-Out/Discharge Documenting (check all that apply): Patient Departure - Discharge home Patient Received Moderate/Deep Sedation with Procedure: No - Discharge Plan Condition: Stable Disposition: HOME Patient Education Materials: Peripheral Artery Disease (ED) Referrals: Sekou Arredondo MD [Primary Care Provider] - Lon Rider MD [Medical Doctor] - Additional Instructions: FOLLOW UP WITH DR. RIDER, VASCULAR SURGEON. FOLLOW UP WITH YOUR PRIMARY CARE PROVIDER IN 2-3 DAYS. RETURN TO THE ED FOR ANY NEW OR WORSENING SYMPTOMS. - Billing Disposition and Condition Condition: STABLE Disposition: Home - Attestation Statements Document Initiated by Scribe: Yes Documenting Scribe: Winter Johnson Provider For Whom Scribe is Documenting (Include Credential): Des Hernandez MD Scribe Attestation: Winter Paris, scribed for Des Hernandez MD on 10/30/18 at 2130. Scribe Documentation Reviewed: Yes Provider Attestation: The documentation as recorded by the Winter mcmillan accurately reflects the service I personally performed and the decisions made by , Des Hernandez MD Status of Scribe Document: Viewed
[2018-10-30 16:30] LABS: ABS Basophils 0.1 10^3/ul (0-0.2); ABS Eosinophils 0.1 10^3/ul (0-0.6); ABS Lymphocytes 1.5 10^3/ul (1.0-4.8); ABS Monocytes 0.6 10^3/ul (0-0.8); ABS Neutrophils 8.4 10^3/ul (1.5-7.7); Eosinophil % 0.9 %; Hematocrit 40 % (42-52); Hemoglobin 13.1 g/dL (14.0-18.0); Lymphocyte % 13.9 %; Mean Corpuscular HGB Conc 33 g/dL (31-36); Mean Corpuscular Hemoglobin 30 pg (27-31); Mean Corpuscular Volume 92 fL (80-94); Mean Platelet Volume 8.2 fL (7.4-10.4); Nucleated Red Blood Cells % 0.1; Platelet Count 227 10^3/uL (150-450); Red Blood Count 4.34 10^6 /uL (4.18-5.48); Red Cell Distribution Width 14 % (10-15); White Blood Count 10.6 10^3/uL (3.5-10.8)
[2018-10-30 16:40] LABS: Albumin 4.3 g/dL (3.2-5.2); Albumin/Globulin Ratio 1.7 (1-3); BUN/Creatinine Ratio 16.9 (8-20); C Reactive Protein 2.65 mg/L (<8.01); Calcium 9.8 mg/dL (8.6-10.3); EGFR African American 68.1 (>60); EGFR Non-African American 56.3 (>60); Globulin 2.5 g/dL (2-4); Potassium 4.9 mmol/L (3.5-5.0); Total Bilirubin 0.5 mg/dL (0.2-1.0); Total Protein 6.8 g/dL (6.4-8.9); Uric Acid 5.4 mg/dL (4.4-7.6)
[2018-10-30 16:41] LABS: Urine Appearance Cloudy; Urine Bilirubin Negative (Negative); Urine Blood Negative (Negative); Urine Color Yellow; Urine Glucose 2+(150 mg/dL) (Negative); Urine Ketones Trace (Negative); Urine Nitrite Negative (Negative); Urine Protein Negative (Negative); Urine Specific Gravity 1.021 (1.010-1.030); Urine Urobilinogen Negative (Negative)
[2018-10-30 20:03] VITALS: BP 153/68
== END | disposition home or self-care (01) ==
LOC: ED 15:10
DX: I70.202 Unspecified atherosclerosis of native arteries of extremities, left leg (principal); E11.9 Type 2 diabetes mellitus without complications; I25.10 Atherosclerotic heart disease of native coronary artery without angina pectoris; I50.20 Unspecified systolic (congestive) heart failure; I11.0 Hypertensive heart disease with heart failure; Z87.891 Personal history of nicotine dependence; Z79.82 Long term (current) use of aspirin; Z79.84 Long term (current) use of oral hypoglycemic drugs; Z79.899 Other long term (current) drug therapy
CPT/HCPCS: 36415; 73706; 80053; 81003; 83605; 84550; 85025; 86140; 96360; 96361; 99284; A9270-GY; Q9967

== ENCOUNTER → 2018-11-16 07:12 | Day surgery (SDC) | payer BC ==
[~2018-11-16 07:12] MED LIST changes: -Acetaminophen TAB* 325 MG PO ONE; +Clopidogrel TAB* 300 MG ONE; +Heparin 2 UNITS/ML IVPREMIX* 3,000 UNIT/1,500 ML BAG IV ONE; +Heparin(*) 1000 UNIT/ML 10 ML VIAL CATH LAB IV ONE; +Iodixanol 320 (CONTRAST) 100 ML SDV ONE; -Iodixanol* (CONTRAST) 320 MG/ML 100 ML SDV IV ONE; +LORazepam TAB(*) 1 MG ONE; +Lidocaine 1% INJ* 10 MG/ML 30 ML SDV ONE; +Midazolam* 1 MG/ML 5 ML VIAL (5 MG) ONE; -NS 0.9% 1000 ML** 1,000 ML IV ONE; +fentaNYL* 50 MCG/ML 2 ML VIAL (100 MCG VIAL) ONE; +nitroGLYCERIN DRIP* 25,000 MCG/250 ML BTL ONE
[2018-11-16 14:26] VITALS: BP 127/52
== END | disposition home or self-care (01) ==
LOC: CHICATH 07:12
PROVIDERS: ATTEND Radiology Diagnostic Radiology
DX: I70.223 Atherosclerosis of native arteries of extremities with rest pain, bilateral legs (principal); I25.2 Old myocardial infarction; Z87.891 Personal history of nicotine dependence; I10 Essential (primary) hypertension; I25.10 Atherosclerotic heart disease of native coronary artery without angina pectoris; I48.91 Unspecified atrial fibrillation; E78.00 Pure hypercholesterolemia, unspecified; E11.9 Type 2 diabetes mellitus without complications; Z79.84 Long term (current) use of oral hypoglycemic drugs
CPT/HCPCS: 37252; 37253; 75716; 75736; 76937; 99156; 99157; A9270-GY; C1725; C1753; C1760; C1769; C1887; C1894; J1644; J2250; J3010